=== PATIENT | female | born 1940 | race Caucasian/White ===

== ENCOUNTER 2020-11-27 14:18 | Outpatient (CLI) | payer MEDICARE, MEDICAID ==
[2020-11-27 17:13] LABS: BASOPHILS # (AUTO) 0.1 10^3/uL (0.0-0.1); BASOPHILS % (AUTO) 1.1 %; EOSINOPHILS # (AUTO) 0.2 10^3/uL (0.0-0.7); EOSINOPHILS % (AUTO) 2.4 %; HCT - HEMATOCRIT 33.3 % (37.0-47.0); HGB - HEMOGLOBIN 10.5 g/dL (12.0-16.0); LYMPHOCYTES # (AUTO) 1.9 10^3/uL (1.5-3.5); MEAN CORPUSCULAR HEMOGLOBIN 30.3 pg (27.0-31.0); MEAN CORPUSCULAR HGB CONC 31.5 g/dL (32.0-36.0); MEAN CORPUSCULAR VOLUME 96.2 fL (81.0-99.0); MEAN PLATELET VOLUME 10.1 fL (7.9-10.8); MONOCYTES # (AUTO) 0.4 10^3/uL (0.0-1.0); MONOCYTES % (AUTO) 5.2 %; NEUTROPHILS # (AUTO) 5.8 10^3/uL (1.5-6.6); NEUTROPHILS % (AUTO) 68.9 %; PLT - PLATELET COUNT 276 10^3/uL (130-450); RED BLOOD COUNT 3.46 10^6/uL (4.20-5.40); RED CELL DISTRIBUTION WIDTH 13.4 % (12.0-15.0); WHITE BLOOD COUNT 8.4 x10^3/uL (4.8-10.8)
[2020-11-27 17:20] LABS: ALBUMIN 3.9 g/dL (3.2-5.5); ALBUMIN/GLOBULIN RATIO 1.1 (1.0-2.2); BILIRUBIN,TOTAL 0.4 mg/dL (0.2-1.0); CALCIUM 9.2 mg/dL (8.5-10.3); CREATININE 0.8 mg/dL (0.4-1.0); POTASSIUM 3.7 mmol/L (3.5-5.0); TOTAL PROTEIN 7.5 g/dL (6.7-8.2)
[2020-11-27 17:37] LABS: THYROID STIMULATING HORMONE 1.27 uIU/mL (0.34-5.60)
[2020-11-27 20:57] LABS: ESTIMATED AVERAGE GLUCOSE 180 mg/dL (70-100); HEMOGLOBIN A1c% 7.9 % (4.27-6.07)
== END 2020-11-27 23:59 | disposition home or self-care (01) ==
LOC: LAB.N 14:18
PROVIDERS: ATTEND Family Medicine
DX: E11.620 Type 2 diabetes mellitus with diabetic dermatitis (principal); L03.90 Cellulitis, unspecified
CPT/HCPCS: 36415; 80053; 81599; 83036; 84443; 85025; 87070; 87077; 87181; 87205

== ENCOUNTER 2021-01-13 06:22 | Day surgery (SDC) | payer MEDICARE ==
[~2021-01-13 06:22] MED LIST: CYCLOPENTOLATE 1% OPHTH DROPS 2 ML ONE; KETOROLAC 0.45% OPHTH DROPS ONE; PHENYLEPHRINE 2.5% OPHTH 2 ML DROPS ONE; PROPARACAINE 0.5% OPHTH DROPS 15 ML ONE
[2021-01-13] MEDS ORDERED: LACTATED RINGERS 1,000 ML IV ONE (07:00)
[2021-01-13] MEDS ORDERED: EPINEPHrine 1 MG/ML AMP ONE (07:08)
[2021-01-13] MEDS ORDERED: MIDAZOLAM 2 MG/2 ML VIAL ONE (07:08)
[2021-01-13] MEDS ORDERED: TRIAMCIN/MOXIFLOX OPHTHALMIC 0.6 ML VIAL IO ONE ×3 (07:08→07:48)
[2021-01-13] MEDS ORDERED: fentaNYL 100 MCG/2 ML VIAL ONE (07:08)
[2021-01-13] MEDS ORDERED: BRIMONIDINE 0.2% OPHTH DROPS 5 ML ONE ×2 (07:09→07:53)
[2021-01-13] MEDS ORDERED: TIMOLOL 0.5% OPHTH DROPS ONE ×2 (07:09→07:55)
[2021-01-13] MEDS ORDERED: HYDROmorphone 0.5 MG/0.5 ML SYRINGE IVP PRN (07:20)
[2021-01-13] MEDS ORDERED: ePHEDrine 50 MG/ML VIAL IVP PRN (07:20)
[2021-01-13] MEDS ORDERED: ONDANSETRON 4 MG/2 ML VIAL IVP PRN (07:20)
[2021-01-13] MEDS ORDERED: fentaNYL 100 MCG/2 ML VIAL IVP PRN (07:20)
[2021-01-13] MEDS ORDERED: MORPHINE 2 MG/ML CARPUJECT IVP PRN (07:20)
[2021-01-13] MEDS ORDERED: ATROPINE ABBOJECT 1 MG/10 ML SYRINGE IVP PRN (07:20)
[2021-01-13] MEDS ORDERED: NALOXONE 0.4 MG/ML VIAL IVP PRN (07:20)
[2021-01-13] MEDS ORDERED: METOCLOPRAMIDE 10 MG/2 ML VIAL IVP PRN (07:20)
--- NOTE | 2021-01-13 07:20 | ANESTHESIA ---
Pre-Anesthesia VS, & Labs - Diagnosis left eye cataract - Procedure Left CATIOL Vital Signs: Temp Pulse Resp BP Pulse Ox 37.0 C 45 L 14 162/52 H 99 01/13/21 06:44 01/13/21 06:44 01/13/21 06:44 01/13/21 06:44 01/13/21 06:44 Height: 5 ft 10 in Weight (kg): 103 kg Body Mass Index: 32.5 BMI Classification: Obese - NPO >8 hours - Is Patient ?: No - Lab Results Current Lab Results: Laboratory Tests 01/13/21 06:54: POC Whole Bld Glucose 224 H Lab results reviewed: Yes Home Medications and Allergies Home Medications: Ambulatory Orders Apixaban [Eliquis] 5 mg ORAL BID 01/13/21 Docusate Sodium [Dulcolax Stool Softener] 1 tab ORAL DAILY PRN 01/13/21 Furosemide [Lasix] 40 mg ORAL DAILY 01/13/21 Insulin Lispro Protamin/Lispro [Humalog Mix 75-25 Kwikpen] 22 - 25 units SQ BID 01/13/21 Lisinopril [Zestril] 40 mg ORAL DAILY 01/13/21 Lovastatin 40 mg ORAL DAILY 01/13/21 Apixaban [Eliquis] 5 mg ORAL BID 01/13/21 Docusate Sodium [Dulcolax Stool Softener] 1 tab ORAL DAILY PRN 01/13/21 Furosemide [Lasix] 40 mg ORAL DAILY 01/13/21 Insulin Lispro Protamin/Lispro [Humalog Mix 75-25 Kwikpen] 22 - 25 units SQ BID 01/13/21 Lisinopril [Zestril] 40 mg ORAL DAILY 01/13/21 Lovastatin 40 mg ORAL DAILY 01/13/21 Allergies/Adverse Reactions: Allergies Allergy/AdvReac Type Severity Reaction Status Date / Time No Known Drug Allergies Allergy Verified 01/13/21 07:11 Anes History & Medical History - Anesthetic History Anesthesia Complications: reports: No previous complications Family history of Anesthesia Complications: Denies Family history of Malignant Hyperthermia: Denies - Medical History Cardiovascular: reports: High cholesterol, Murmur, Arrhythmia Pulmonary: reports: None Gastrointestinal: reports: None Urinary: reports: Incontinence Musculoskeletal: reports: Other Endocrine/Autoimmune: reports: Type 2 diabetes Skin: reports: None Other Past Medical History: uses wheelchair, "can't move hips" - Surgical History General: reports: Appendectomy Gynecologic: reports: Other Orthopedic: reports: Other Exam General: Alert, Oriented x3, Cooperative, No acute distress Dental: Dentures full Upper, Dentures full Lower Mouth Openin Fingerbreadth Neck Mobility: Normal Mallampati classification: II Respiratory: Lungs clear, Normal breath sounds, No respiratory distress, No accessory muscle use Cardiovascular: Regular rate, Normal S1, Normal S2, No murmurs Plan Anesthesia Type: MAC Consent for Procedure(s) Verified and Reviewed: Yes Code Status: Attempt Resuscitation ASA classification: 3-Severe systemic disease Is this case an emergency?: No
[2021-01-13] MEDS ORDERED: METHYLERGONOVINE 0.2 MG/ML VIAL ONE (07:22)
[2021-01-13] MEDS ORDERED: PROPARACAINE 0.5% OPHTH DROPS 15 ML EACHEYE ONE (07:44)
[2021-01-13] MEDS ORDERED: BSS/LIDOCAINE/EPINEPHRINE 1 ML SYRINGE IO ONE (07:44)
[2021-01-13] MEDS ORDERED: TIMOLOL 0.5% OPHTH DROPS OPTH ONE (07:44)
[2021-01-13] MEDS ORDERED: EPINEPHrine 1 MG/ML AMP IR ONE (07:44)
[2021-01-13] MEDS ORDERED: BRIMONIDINE 0.2% OPHTH DROPS 5 ML OPTH ONE (07:44)
[2021-01-13] MEDS ORDERED: LIDOCAINE MPF 2%-EPI 1:200000 20 ML VIAL ONE (07:55)
[2021-01-13] MEDS ORDERED: LACTATED RINGERS 950 ML IV ONE (08:00)
[2021-01-13] MEDS ORDERED: LACTATED RINGERS 1,000 ML IV SCH (08:00)
--- NOTE | 2021-01-13 08:08 | OPERATIVE REPORT ---
Operative Report - Other Other Information/Narrative: Date of Surgery: 01/13/21 Preop Dx: Visually significant cataract left eye. This was the first cataract surgery. Postop Dx: Same Procedure: Phacoemulsification with posterior chamber intraocular lens implant left eye Surgeon: Dr. Nikhil Valente Anesthesia: Monitored anesthesia care Complications: None Operative Indications: This is a 80-year-old F with progressive vision loss in the left eye due to 2+ nuclear sclerotic, 2+ cortical, and 2+ posterior subcapsular cataract. Best corrected visual acuity was 20/100 vision in the left eye. Indications for surgery were: - Overall decrease in vision - Difficulty seeing words on a computer screen - Difficulty reading - Difficulty seeing words, closed captions, or game scores on TV - Difficulty seeing street signs - Difficulty with glare or bright lights in any situation - Difficulty tracking a golf ball The patient was consented at length concerning the risks and benefits of cataract surgery after which the patient expressed a desire to proceed with surgery. Operative Procedure: The patient was taken into OR#3 and placed under monitored anesthesia care. A surgical time-out was conducted confirming correct patient, correct procedure, and correct surgical site. The patient was given topical anesthesia and then prepped and draped in the usual sterile fashion. The eye was entered at the 6 and 3 oclock positions. Intracameral Shugarcaine was injected into the anterior chamber followed by a dispersive viscoelastic. A continuous-tear curvilinear capsulorhexis was performed. The nucleus was hydrodissected and phacoemulsified. The cortex was evacuated using automated infusion and aspiration. A cohesive viscoelastic was injected into the capsular bag and a 20.0 diopter intraocular lens was inserted into the bag. Infusion and aspiration were used to evacuate the viscoelastic materials from the eye. The wounds were hydrated and the eye inflated to physiologic pressure using balanced salt solution. Approximately 0.25ml of a mixture of triamcinolone and moxifloxacin was injected trans-sclerally into the vitreous in the inferotemporal quadrant using a 30 gauge cannula. An additional 0.55ml of a mixture of triamcinolone, moxifloxacin, and vancomycin was injected subconjunctivally in the superior quadrant for infection and inflammation prophylaxis. Wound integrity was checked with Weck-Juliana sponges. The patient was taken from the operating room in good condition and given post-op instructions.
--- NOTE | 2021-01-13 08:18 | ANESTHESIA POST OP EVALUATION ---
Anesthesia Post Eval - Post Anesthesia Eval Vitals: Last Vital Signs Temp 36.4 C L 01/13/21 08:12 Pulse 45 L 01/13/21 08:12 Resp 18 01/13/21 08:12 BP 148/44 H 01/13/21 08:12 Pulse Ox 100 01/13/21 08:12 CV Function Including HR & BP: Stable Pain Control: Satisfactory Nausea & Vomiting: Negative Mental Status: Baseline Respiratory Status: Airway Patent Hydration Status: Satisfactory Anesthesia Complications: None
[2021-01-13 08:49] VITALS: BP 142/44
--- NOTE | 2021-01-13 10:17 | OPERATIVE REPORT ---
Operative Report - Other Other Information/Narrative: Op Report Ammendment: Date of Surgery: 01/13/21 ..... An additional 0.55ml of a mixture of triamcinolone and moxifloxacin (vancomycin was NOT used due to lack of availability from the pharmacy) was injected subconjunctivally in the superior quadrant for infection and inflammation prophylaxis.
== END 2021-01-13 06:23 | disposition home or self-care (01) ==
LOC: SDS 06:22
PROVIDERS: ATTEND Ophthalmology
DX: E11.36 Type 2 diabetes mellitus with diabetic cataract (principal); H25.812 Combined forms of age-related cataract, left eye; G47.33 Obstructive sleep apnea (adult) (pediatric); Z79.4 Long term (current) use of insulin; E66.9 Obesity, unspecified; Z68.32 Body mass index [BMI] 32.0-32.9, adult
CPT/HCPCS: 66984; A9270; J3490; J7120

== ENCOUNTER 2021-04-21 07:47 | Outpatient (CLI) | payer MEDICARE, MEDICAID | END 2021-04-21 07:48 | disposition EMS.NT | LOC: EMS 07:47 | DX: Z03.89 Encounter for observation for other suspected diseases and conditions ruled out (principal) ==

== ENCOUNTER 2021-04-21 08:06 | Day surgery (SDC) | payer MEDICARE, MEDICAID ==
[2021-04-21] MEDS ORDERED: MIDAZOLAM 2 MG/2 ML VIAL ONE (08:08)
[2021-04-21] MEDS ORDERED: LACTATED RINGERS 1,000 ML IV ONE (08:24)
--- NOTE | 2021-04-21 08:31 | ANESTHESIA ---
Pre-Anesthesia VS, & Labs - Diagnosis senile combined cataract - Procedure right cataract extraction with intraocular lens Vital Signs: Temp Pulse Resp BP Pulse Ox 36.4 C L 60 16 186/46 H 100 04/21/21 08:14 04/21/21 08:14 04/21/21 08:14 04/21/21 08:14 04/21/21 08:14 Height: 5 ft 10 in Weight (kg): 104 kg Body Mass Index: 32.8 BMI Classification: Obese - NPO >8 hours - Is Patient ?: No Home Medications and Allergies Apixaban [Eliquis] 5 mg ORAL BID 01/13/21 Docusate Sodium [Dulcolax Stool Softener] 1 tab ORAL DAILY PRN 01/13/21 Furosemide [Lasix] 40 mg ORAL DAILY 01/13/21 Insulin Lispro Protamin/Lispro [Humalog Mix 75-25 Kwikpen] 22 - 25 units SQ BID 01/13/21 Lisinopril [Zestril] 40 mg ORAL DAILY 01/13/21 Lovastatin 40 mg ORAL DAILY 01/13/21 Allergies/Adverse Reactions: Allergies Allergy/AdvReac Type Severity Reaction Status Date / Time No Known Drug Allergies Allergy Verified 04/21/21 08:34 Anes History & Medical History - Anesthetic History Anesthesia Complications: reports: No previous complications - Medical History Cardiovascular: reports: High cholesterol, Murmur, Arrhythmia Pulmonary: reports: None Gastrointestinal: reports: None Urinary: reports: Incontinence Musculoskeletal: reports: Other Endocrine/Autoimmune: reports: Type 2 diabetes Skin: reports: None - Surgical History General: reports: Appendectomy Gynecologic: reports: Other Orthopedic: reports: Other Exam General: Alert, Oriented x3 Dental: Dentures full Upper, Dentures full Lower Mouth Opening: Can't Open Mouth Mallampati classification: II Thyromental Distance: greater than 6 cm Respiratory: Lungs clear Cardiovascular: Regular rate Other Exam Comments:: slipped and fell this morning, soreness on right side. no LOC. Plan Anesthesia Type: Total IV Consent for Procedure(s) Verified and Reviewed: Yes Code Status: Attempt Resuscitation ASA classification: 3-Severe systemic disease Is this case an emergency?: No
[2021-04-21] MEDS ORDERED: EPINEPHrine 1 MG/ML AMP IR ONE (08:59)
[2021-04-21] MEDS ORDERED: BRIMONIDINE 0.2% OPHTH DROPS 5 ML OPTH ONE (08:59)
[2021-04-21] MEDS ORDERED: BSS/LIDOCAINE/EPINEPHRINE 1 ML SYRINGE IO ONE (08:59)
[2021-04-21] MEDS ORDERED: TIMOLOL 0.5% OPHTH DROPS OPTH ONE (08:59)
[2021-04-21] MEDS ORDERED: VANCOMYCIN OPHTHALMI 8MG/0.8ML 8 MG/0.8 ML SYRINGE IO ONE (09:00)
[2021-04-21] MEDS ORDERED: TRIAMCIN/MOXIFLOX OPHTHALMIC 0.6 ML VIAL IO ONE ×2 (09:00→11:37)
[2021-04-21] MEDS ORDERED: PROPARACAINE 0.5% OPHTH DROPS 15 ML EACHEYE ONE (09:00)
[2021-04-21 09:35] VITALS: BP 165/63
--- NOTE | 2021-04-21 09:53 | ANESTHESIA POST OP EVALUATION ---
Anesthesia Post Eval - Post Anesthesia Eval Vitals: Last Vital Signs Temp 36.3 C L 04/21/21 09:31 Pulse 50 L 04/21/21 09:31 Resp 18 04/21/21 09:31 BP 165/63 H 04/21/21 09:31 Pulse Ox 100 04/21/21 09:31 CV Function Including HR & BP: Stable Pain Control: Satisfactory Nausea & Vomiting: Negative Mental Status: Baseline Respiratory Status: Airway Patent Hydration Status: Satisfactory Anesthesia Complications: None
[2021-04-21] MEDS ORDERED: EPINEPHrine 1 MG/ML AMP ONE (11:37)
[2021-04-21] MEDS ORDERED: BSS/LIDOCAINE/EPINEPHRINE 1 ML VIAL ONE (11:38)
[2021-04-21] MEDS ORDERED: BRIMONIDINE 0.2% OPHTH DROPS 5 ML ONE (11:38)
[2021-04-21] MEDS ORDERED: TIMOLOL 0.5% OPHTH DROPS ONE (11:38)
--- NOTE | 2021-04-21 11:40 | OPERATIVE REPORT ---
Operative Report - Other Other Information/Narrative: Date of Surgery: 04/21/21 Preop Dx: Visually significant cataract right eye. Cataract surgery was performed in the left eye on . Postop Dx: Same Procedure: Phacoemulsification with posterior chamber intraocular lens implant right eye Surgeon: Dr. Nikhil Valente Anesthesia: Monitored anesthesia care Complications: None Operative Indications: This is a 81-year-old F with progressive vision loss in the right eye due to 2+ nuclear sclerotic, 1+ cortical, and 1-2+ posterior subcapsular cataract. Best corrected visual acuity was 20/100 vision in the right eye. Indications for surgery were: - Overall decrease in vision - Difficulty seeing words on a computer screen - Difficulty reading - Difficulty seeing words, closed captions, or game scores on TV - Difficulty seeing street signs - Difficulty with glare or bright lights in any situation - Difficulty tracking a golf ball The patient was consented at length concerning the risks and benefits of cataract surgery after which the patient expressed a desire to proceed with surgery. Operative Procedure: The patient was taken into OR#3 and placed under monitored anesthesia care. A surgical time-out was conducted confirming correct patient, correct procedure, and correct surgical site. The patient was given topical anesthesia and then prepped and draped in the usual sterile fashion. The eye was entered at the 6 and 3 oclock positions. Intracameral Shugarcaine was injected into the anterior chamber followed by a dispersive viscoelastic. A continuous-tear curvilinear capsulorhexis was performed. The nucleus was hydrodissected and phacoemulsified. The cortex was evacuated using automated infusion and aspiration. A cohesive viscoelastic was injected into the capsular bag and a 19.5 diopter intraocular lens was inserted into the bag. Infusion and aspiration were used to evacuate the viscoelastic materials from the eye. The wounds were hydrated and the eye inflated to physiologic pressure using balanced salt solution. Approximately 0.25ml of a mixture of triamcinolone and moxifloxacin was injected trans-sclerally into the vitreous in the inferotemporal quadrant using a 30 gauge cannula. An additional 0.55ml of a mixture of triamcinolone, moxifloxacin, and vancomycin was injected s ubconjunctivally in the superior quadrant for infection and inflammation prophylaxis. Wound integrity was checked with Weck-Juliana sponges. The patient was taken from the operating room in good condition and given post-op instructions.
== END 2021-04-21 08:07 | disposition home or self-care (01) ==
LOC: SDS 08:06
PROVIDERS: ATTEND Ophthalmology
DX: E11.36 Type 2 diabetes mellitus with diabetic cataract (principal); H25.811 Combined forms of age-related cataract, right eye; Z79.4 Long term (current) use of insulin; G47.33 Obstructive sleep apnea (adult) (pediatric); F41.9 Anxiety disorder, unspecified; E66.9 Obesity, unspecified; Z68.32 Body mass index [BMI] 32.0-32.9, adult; Z98.42 Cataract extraction status, left eye
CPT/HCPCS: 66984; A9270; J3490; J7120

== ENCOUNTER 2021-05-05 08:31 | Outpatient (CLI) | payer MEDICARE, MEDICAID ==
[2021-05-05 08:59] LABS: CALCIUM 9.2 mg/dL (8.5-10.3); CREATININE 0.9 mg/dL (0.4-1.0); POTASSIUM 3.9 mmol/L (3.5-5.0)
[2021-05-05 13:07] LABS: ESTIMATED AVERAGE GLUCOSE 174 mg/dL (70-100); HEMOGLOBIN A1c% 7.7 % (4.27-6.07)
== END 2021-05-05 08:32 | disposition home or self-care (01) ==
LOC: LAB 08:31
PROVIDERS: ATTEND Registered Nurse
DX: E11.9 Type 2 diabetes mellitus without complications (principal)
CPT/HCPCS: 36415; 80048; 82043; 82570; 83036

== ENCOUNTER 2021-05-06 09:38 | Outpatient (CLI) | payer MEDICARE, MEDICAID ==
[2021-05-06 10:05] LABS: CREATININE,URINE 100.9 mg/dL; MICROALBUM/CREATININE RATIO,UR 64.4 ug/mg (<30.0); MICROALBUMIN,URINE 6.5 mg/dL (0-300.0)
== END 2021-05-06 09:39 | disposition home or self-care (01) ==
LOC: LAB 09:38
PROVIDERS: ATTEND Registered Nurse
DX: E11.9 Type 2 diabetes mellitus without complications (principal)
CPT/HCPCS: 82043; 82570

== ENCOUNTER 2021-08-18 09:37 | Outpatient (CLI) | payer MEDICARE, MEDICAID ==
[2021-08-18 10:17] LABS: CHOL/HDL RATIO 2.6 (<4.4); CHOLESTEROL 120 mg/dL; HDL CHOLESTEROL 46 mg/dL; LDL CHOLESTEROL,CALCULATED 64 mg/dL; LDL/HDL RATIO 1.4 (<4.4); TRIGLYCERIDES 48 mg/dL; VLDL CHOLESTEROL 10 mg/dL
[2021-08-18 11:07] LABS: ESTIMATED AVERAGE GLUCOSE 180 mg/dL (70-100); HEMOGLOBIN A1c% 7.9 % (4.27-6.07)
== END 2021-08-18 09:38 | disposition home or self-care (01) ==
LOC: LAB 09:37
PROVIDERS: ATTEND Nurse Practitioner
DX: E11.65 Type 2 diabetes mellitus with hyperglycemia (principal)
CPT/HCPCS: 36415; 80061; 83036; 83721

== ENCOUNTER 2021-10-06 08:00 | Outpatient (CLI) | payer MEDICARE, MEDICAID ==
[2021-10-06 21:32] LABS: BACTERIAL VAGINOSIS DNA NEGATIVE (NEGATIVE); CANDIDA GLABRATA DNA NEGATIVE (NEGATIVE); CANDIDA GROUP DNA NEGATIVE (NEGATIVE); CANDIDA KRUSEI DNA NEGATIVE (NEGATIVE); TRICHOMONAS VAGINALIS DNA NEGATIVE (NEGATIVE)
== END 2021-10-06 23:59 | disposition home or self-care (01) ==
LOC: LAB 08:00
PROVIDERS: ATTEND Obstetrics & Gynecology
DX: N76.0 Acute vaginitis (principal)
CPT/HCPCS: 81514

== ENCOUNTER 2021-12-15 07:28 | Emergency (ER) | payer MEDICARE, MEDICAID ==
[2021-12-15] MEDS ORDERED: SODIUM CHLORIDE 0.9% 500 ML IV STA (07:39)
[2021-12-15 07:50] LABS: BASOPHILS % (AUTO) 0.3 %; EOSINOPHILS % (AUTO) 0.4 %; HGB - HEMOGLOBIN 11.6 g/dL (12.0-16.0); LYMPHOCYTES # (AUTO) 0.4 10^3/uL (1.5-3.5); LYMPHOCYTES % (AUTO) 4.1 %; MEAN CORPUSCULAR HEMOGLOBIN 30.9 pg (27.0-31.0); MEAN CORPUSCULAR HGB CONC 32.2 g/dL (32.0-36.0); MEAN CORPUSCULAR VOLUME 95.7 fL (81.0-99.0); MEAN PLATELET VOLUME 9.1 fL (7.9-10.8); MONOCYTES # (AUTO) 0.2 10^3/uL (0.0-1.0); MONOCYTES % (AUTO) 2.2 %; NEUTROPHILS # (AUTO) 8.5 10^3/uL (1.5-6.6); NEUTROPHILS % (AUTO) 92.8 %; PLT - PLATELET COUNT 188 10^3/uL (130-450); RED BLOOD COUNT 3.76 10^6/uL (4.20-5.40); RED CELL DISTRIBUTION WIDTH 13.2 % (12.0-15.0); WHITE BLOOD COUNT 9.1 x10^3/uL (4.8-10.8)
[2021-12-15 07:55] LABS: PT - PROTHROMBIN TIME 11.8 secs (9.9-12.6)
--- NOTE | 2021-12-15 08:01 | ED Physician Documentation ---
History of Present Illness - Stated complaint Stated Complaint: GEN WEAKNESS - Chief complaint Chief Complaint: Neuro - History obtained from History obtained from: Patient, EMS - Additonal information Additional information: Patient is an 81-year-old female with a history of TIAs, on Eliquis presenting for evaluation of generalized weakness since yesterday afternoon. Patient was able to walk using her walker to her garage to have coffee and sat down on the walker. She had difficulty getting up and it took her quite some time to get back into the home. She then has been sitting in a recliner since last night. She lives with her niece. Due to continued weakness this morning EMS was activated. Loop Tender was concerned for possible facial droop that he noted to her right lip.Patient denies falling or hitting her head. She reports being compliant with her medications. She has had a nonproductive cough. She denies chest pain, difficulty breathing, abdominal pain, vomiting, dysuria.She was noted to have a low-grade fever of 37.9 upon arrival. Review of Systems Constitutional: reports: Fever Nose: denies: Congestion Cardiac: denies: Chest pain / pressure Respiratory: reports: Cough. denies: Dyspnea GI: denies: Abdominal Pain, Vomiting, Diarrhea : denies: Dysuria Musculoskeletal: denies: Neck pain Neurologic: reports: Generalized weakness. 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 - Present Medications Home Medications: Ambulatory Orders Medication Instructions Recorded Confirmed Apixaban [Eliquis] 5 mg ORAL BID 01/13/21 12/15/21 Docusate Sodium [Dulcolax Stool 1 tab ORAL DAILY PRN 01/13/21 12/15/21 Softener] Insulin Lispro Protamin/Lispro 20 units SQ BID 01/13/21 12/15/21 [Humalog Mix 75-25 Kwikpen] Lisinopril [Zestril] 40 mg ORAL DAILY 01/13/21 12/15/21 Lovastatin 40 mg ORAL DAILY 01/13/21 12/15/21 cephALEXin [Keflex] 500 mg PO Q6H #28 cap 12/15/21 - Allergies Allergies/Adverse Reactions: Allergies Allergy/AdvReac Type Severity Reaction Status Date / Time No Known Drug Allergies Allergy Verified 12/15/21 07:38 PD ED PE NORMAL - General General: Alert and oriented X 3, No acute distress, Well developed/nourished - HEENT HEENT: Atraumatic, PERRL, EOMI, Pharynx benign (Tongue is midline). 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, No motor deficit, No sensory deficit, Normal speech, Other (Questionable Droop to corner of right lip, however patient is able to smile symmetrically and puff out her cheeks symmetrically) Results - Vitals Vitals: Vital Signs - 24 hr 12/15/21 12/15/21 12/15/21 07:34 07:49 09:24 Temperature 37.9 C Heart Rate 63 59 L 61 Respiratory 20 21 20 Rate Blood Pressure 192/38 H 192/38 H 197/43 H O2 Saturation 95 93 97 Oxygen O2 Source Room air - EKG (time done) 0813 Rate: Rate (enter#) (56) Rhythm: Sinus bradycardia Intervals: No: Prolonged QT Ischemia: No: ST elevation c/w ischemia - Labs Labs: Laboratory Tests 12/15/21 12/15/21 12/15/21 07:40 07:45 07:45 WBC 9.1 RBC 3.76 L Hgb 11.6 L Hct 36.0 L MCV 95.7 MCH 30.9 MCHC 32.2 RDW 13.2 Plt Count 188 MPV 9.1 Neut # (Auto) 8.5 H Lymph # (Auto) 0.4 L [place] # (Auto) 0.2 Eos # (Auto) 0.0 Baso # (Auto) 0.0 Absolute Nucleated RBC 0.00 Nucleated RBC % 0.0 PT 11.8 INR 1.0 Sodium Potassium Chloride Carbon Dioxide Anion Gap BUN Creatinine Estimated GFR (MDRD) Glucose Lactic Acid Calcium Magnesium Total Bilirubin AST ALT Alkaline Phosphatase Total Protein Albumin Globulin Albumin/Globulin Ratio Lipase Urine Color Urine Clarity Urine pH Ur Specific [place] Urine Protein Urine Glucose (UA) Urine Ketones Urine Occult Blood Urine Nitrite Urine Bilirubin Urine Urobilinogen Ur Leukocyte Esterase Urine RBC Urine WBC Urine WBC Clumps Ur Squamous Epith Cells Urine Bacteria Ur Microscopic Review Urine Culture Comments Nasal Adenovirus (PCR) NOT DETECTED Nasal B. parapertussis DNA (PCR) NOT DETECTED Nasal Coronavir 229E PCR NOT DETECTED Nasal Coronavir HKU1 PCR NOT DETECTED Nasal Coronavir NL63 PCR NOT DETECTED Nasal Coronavir OC43 PCR NOT DETECTED Nasal Enterovir/Rhinovir PCR NOT DETECTED Nasal Influenza B PCR NOT DETECTED Nasal Influenza A PCR NOT DETECTED Nasal Parainfluen 1 PCR NOT DETECTED Nasal Parainfluen 2 PCR NOT DETECTED Nasal Parainfluen 3 PCR NOT DETECTED Nasal Parainfluen 4 PCR NOT DETECTED Nasal RSV (PCR) NOT DETECTED Nasal B.pertussis DNA PCR NOT DETECTED Nasal C.pneumoniae (PCR) NOT DETECTED Harish Human Metapneumo PCR NOT DETECTED Nasal M.pneumoniae (PCR) NOT DETECTED Nasal SARS-CoV-2 (PCR) NOT DETECTED 12/15/21 12/15/21 12/15/21 07:45 07:45 08:28 WBC RBC Hgb Hct MCV MCH MCHC RDW Plt Count MPV Neut # (Auto) Lymph # (Auto) [place] # (Auto) Eos # (Auto) Baso # (Auto) Absolute Nucleated RBC Nucleated RBC % PT INR Sodium 141 Potassium 3.7 Chloride 106 Carbon Dioxide 24 Anion Gap 11.0 BUN 19 Creatinine 0.8 Estimated GFR (MDRD) 69 L Glucose 287 H Lactic Acid 1.8 Calcium 9.0 Magnesium 1.6 L Total Bilirubin 0.8 AST 13 ALT 11 Alkaline Phosphatase 60 Total Protein 6.8 Albumin 3.5 Globulin 3.3 Albumin/Globulin Ratio 1.1 Lipase 21 L Urine Color YELLOW Urine Clarity SL. CLOUDY Urine pH 6.0 Ur Specific [place] 1.025 Urine Protein 30 H Urine Glucose (UA) 250 H Urine Ketones NEGATIVE Urine Occult Blood SMALL H Urine Nitrite POSITIVE H Urine Bilirubin NEGATIVE Urine Urobilinogen 0.2 (NORMAL) Ur Leukocyte Esterase SMALL H Urine RBC 0-5 Urine WBC >25 H Urine WBC Clumps PRESENT Ur Squamous Epith Cells FEW Squamous Urine Bacteria Many H Ur Microscopic Review INDICATED Urine Culture Comments INDICATED Nasal Adenovirus (PCR) Nasal B. parapertussis DNA (PCR) Nasal Coronavir 229E PCR Nasal Coronavir HKU1 PCR Nasal Coronavir NL63 PCR Nasal Coronavir OC43 PCR Nasal Enterovir/Rhinovir PCR Nasal Influenza B PCR Nasal Influenza A PCR Nasal Parainfluen 1 PCR Nasal Parainfluen 2 PCR Nasal Parainfluen 3 PCR Nasal Parainfluen 4 PCR Nasal RSV (PCR) Nasal B.pertussis DNA PCR Nasal C.pneumoniae (PCR) Harish Human Metapneumo PCR Nasal M.pneumoniae (PCR) Nasal SARS-CoV-2 (PCR) PD MEDICAL DECISION MAKING - ED course Complexity details: reviewed results, re-evaluated patient, d/w patient ED course: Patient presenting for evaluation of generalized weakness since yesterday. Loop Tender had concerns for possible facial droop with noticing a lag at her right lip but upon my evaluation it does not appear to be a true droop as she is able to smile symmetrically and puff out cheeks symmetrically and has no other suggestions of a focal deficit on exam.She does report having increased weakness and decreased strength in her legs since the prior day with no focal deficits again noted on exam. She was noted to have a low-grade fever. Work-up included head CT as blood pressures were elevated which did not show signs of a bleed. Labs reviewed and urine suggests an infection.Her respiratory panel is negative. Patient did receive IV fluids as well as antibiotics and was doing much better and able to ambulate. She has a niece here who she stays with and is able to assist her and they are comfortable with plan for discharge.They are advised on concerning symptoms to return for. Patient was able to ambulate with her walker without assistance and get her self up from the hospital bed. Her niece Jovita who she lives with is at the bedside and is comfortable with plan for discharge and they do have Some additional family coming that may be able to help in caring for patient. Departure - Departure Disposition: 01 Home, Self Care Clinical Impression: Generalized weakness, UTI (urinary tract infection) Condition: Stable Instructions: ED UTI Cystitis Female Prescriptions: cephALEXin [Keflex] 500 mg PO Q6H #28 cap Comments: You were evaluated for generalized weakness and found to have a low-grade fever. Your labs were overall stable. Your urine is concerning for an infection. A brain CT does not show any bleeding and your chest x-ray is clear. Your respiratory panel is also negative for COVID, influenza, RSV and other common cold viruses that we test for. I have sent prescription for an antibiotic to the [facility] pharmacy.Please call your primary care doctor to try and arrange for close follow-up as you may need additional assistance at home with home health. You may also need outpatient physical therapy to help build your strength. Discharge Date/Time: 12/15/21 10:58
[2021-12-15 08:04] LABS: ALBUMIN 3.5 g/dL (3.2-5.5); ALBUMIN/GLOBULIN RATIO 1.1 (1.0-2.2); BILIRUBIN,TOTAL 0.8 mg/dL (0.2-1.0); CREATININE 0.8 mg/dL (0.4-1.0); MAGNESIUM 1.6 mg/dL (1.7-2.8); POTASSIUM 3.7 mmol/L (3.5-5.0); TOTAL PROTEIN 6.8 g/dL (6.7-8.2)
--- NOTE | 2021-12-15 08:19 | CT Report ---
PROCEDURE: HEAD WO INDICATIONS: Weakness, hypertension TECHNIQUE: Noncontrast 4.5 mm thick angled axial sections acquired from the foramen magnum to the vertex. For r adiation dose reduction, the following was used: automated exposure control, adjustment of mA and/or kV according to patient size. COMPARISON: None. FINDINGS: No acute intracranial hemorrhage, abnormal extra axial fluid collection, mass effect, or midline shif t. Moderate global cerebral volume loss and chronic micro-vascular ischemic changes. 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 Ventricular system and basilar cisterns are patent . No gross orbital abnormality. Paranasal sinuses and mastoid air cells predominantly clear. No signi ficant osseous abnormality. IMPRESSION: No acute intracranial finding. Reviewed by: Elia Shelton MD on 12/15/2021 8:17 AM [facility] Approved by: Elia Shelton MD on 12/15/2021 8:17 AM [facility] Station ID: [id number]
[2021-12-15] MEDS ORDERED: lisinopriL 20 MG TABLET PO STA (08:23)
[2021-12-15] MEDS ORDERED: MAGNESIUM OXIDE 400 MG TABLET PO STA (08:25)
--- NOTE | 2021-12-15 08:35 | XRAY Report ---
PROCEDURE: Chest 1 View X-Ray INDICATIONS: fever/cough TECHNIQUE: One view of the chest was acquired. COMPARISON: None. FINDINGS: Surgical changes and devices: None. Lungs and pleura: No pleural effusions or pneumothorax. Mild increased pulmonary vascularity. Mediastinum: Mediastinal contours appear normal. Heart size is enlarged. Bones and chest wall: No suspicious bony lesions. Overlying soft tissues appear unremarkable. IMPRESSION: Mild increased vascularity suggestive of edema. Reviewed by: Toya Edwards MD on 12/15/2021 8:34 AM [facility] Approved by: Toya Edwards MD on 12/15/2021 8:34 AM [facility] Station ID: [id number]
[2021-12-15 08:50] LABS: B. PARAPERTUSSIS- RESP PCR PAN NOT DETECTED; B. PERTUSSIS- RESP PCR PANEL NOT DETECTED; C. PNEUMONIAE- RESP PCR PANEL NOT DETECTED; CORONAVIRUS 229E-RESP PCR NOT DETECTED; CORONAVIRUS HKU1-RESP PCR NOT DETECTED; CORONAVIRUS NL63-RESP PCR NOT DETECTED; CORONAVIRUS OC43-RESP PCR NOT DETECTED; HUMAN METAPNEUMOVIRUS NOT DETECTED; INFLUENZA A- RESP PCR PANEL NOT DETECTED; INFLUENZA B - RESP PCR PANEL NOT DETECTED; M. PNEUMONIAE- RESP PCR PANEL NOT DETECTED; PARAINFLUENZA VIRUS 1 NOT DETECTED; PARAINFLUENZA VIRUS 2 NOT DETECTED; PARAINFLUENZA VIRUS 3 NOT DETECTED; PARAINFLUENZA VIRUS 4 NOT DETECTED; RHINOVIRUS/ENTEROVIRUS NOT DETECTED; RSV- RESP PCR PANEL NOT DETECTED; SARS-CoV-2 -RESP PCR PANEL NOT DETECTED
[2021-12-15 08:51] LABS: BILIRUBIN,URINE NEGATIVE (NEGATIVE); GLUCOSE, URINE (UA) 250 mg/dL (NEGATIVE); KETONES,URINE (UA) NEGATIVE (NEGATIVE); LEUKOCYTE ESTERASE, URINE SMALL (NEGATIVE); NITRITE,URINE POSITIVE (NEGATIVE); OCCULT BLOOD,URINE SMALL (NEGATIVE); PROTEIN,URINE 30 mg/dL (NEGATIVE); UROBILINOGEN,URINE 0.2 (NORMAL) E.U./dL (NORMAL)
[2021-12-15 09:00] LABS: CLARITY,URINE SL. CLOUDY (CLEAR)
[2021-12-15 09:08] LABS: BACTERIA,URINE Many /HPF (None Seen); RBC,URINE 0-5 /HPF (0-5); SQUAMOUS EPITHELIAL CELL,UR FEW Squamous (<= Few); WBC CLUMPS,URINE PRESENT; WBC,URINE >25 /HPF (0-5)
[2021-12-15] MEDS ORDERED: cefTRIAXone 1 GM in SODIUM CHLORIDE 0.9% MINIBAG 100 ML IV STA (09:15)
[2021-12-15] MEDS ORDERED: ACETAMINOPHEN 325 MG TABLET PO STA (09:17)
[2021-12-15 09:25] VITALS: BP 197/43
== END 2021-12-15 10:58 | disposition home or self-care (01) ==
LOC: EDUNIT# → ED 07:28
DX: N39.0 Urinary tract infection, site not specified (principal); R53.1 Weakness; R05.9 Cough, unspecified; R03.0 Elevated blood-pressure reading, without diagnosis of hypertension; R00.1 Bradycardia, unspecified; Z86.73 Personal history of transient ischemic attack (TIA), and cerebral infarction without residual deficits; Z79.01 Long term (current) use of anticoagulants; E11.9 Type 2 diabetes mellitus without complications; Z79.4 Long term (current) use of insulin
CPT/HCPCS: 36415; 51701; 70450; 71045; 80053; 81001; 83605; 83690; 83735; 85025; 85610; 87040; 87086; 87150; 87181; 87633; 93005; 96365; 99283; 99284; A9270; 81003

== ENCOUNTER 2021-12-16 13:02 | Inpatient (IN) | payer MEDICARE, MEDICAID ==
[2021-12-16] MEDS ORDERED: cefTRIAXone 2 GM in SODIUM CHLORIDE 0.9% MINIBAG 100 ML IV STA (13:13)
--- NOTE | 2021-12-16 13:15 | ED Physician Documentation ---
History of Present Illness - Stated complaint Stated Complaint: KNEE/HIP PX - Chief complaint Chief Complaint: Trauma Ext - History obtained from History obtained from: Patient, EMS - Additonal information Additional information: 81-year-old woman was seen here yesterday for UTI. In the interim she has 1 of 2 blood cultures positive for E. coli. We called her back, but she could not make it back. She had a episode of weakness and she kind of crumpled to the ground and has knee and tailbone pain. There was no syncope. Brought in by ambulance for evaluation of knee and tailbone pain after a fall. No other injuries. Review of Systems Ten Systems: 10 systems reviewed and negative Constitutional: reports: Fatigue. 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 - Present Medications Home Medications: Ambulatory Orders Medication Instructions Recorded Confirmed Apixaban [Eliquis] 5 mg ORAL BID 01/13/21 12/16/21 Docusate Sodium [Dulcolax Stool 1 tab ORAL DAILY PRN 01/13/21 12/16/21 Softener] Insulin Lispro Protamin/Lispro 20 units SQ BID 01/13/21 12/16/21 [Humalog Mix 75-25 Kwikpen] Lisinopril [Zestril] 40 mg ORAL DAILY 01/13/21 12/16/21 Lovastatin 40 mg ORAL DAILY 01/13/21 12/16/21 cephALEXin [Keflex] 500 mg PO Q6H #28 cap 12/15/21 12/16/21 - Allergies Allergies/Adverse Reactions: Allergies Allergy/AdvReac Type Severity Reaction Status Date / Time No Known Drug Allergies Allergy Verified 12/15/21 07:38 - Social History Does the pt smoke?: No Smoking Status: Never smoker - POLST Patient has POLST: No PD ED PE NORMAL - Vitals Vital signs reviewed: Yes - General General: Alert and oriented X 3, No acute distress - HEENT HEENT: PERRL, EOMI - Neck Neck: Supple, no meningeal sign, No bony TTP - Cardiac Cardiac: RRR, No murmur - Respiratory Respiratory: No respiratory distress, Clear bilaterally - Abdomen Abdomen: Soft, Non tender - Extremities Extremities: No deformity, Other (Tender to the medial joint lines of both knees without effusions or deformities. Tenderness to the sacrum low down without other pelvic or hip tenderness.) - Neuro Neuro: Alert and oriented X 3, Normal speech - Psych Psych: Normal mood, Normal affect Results - Vitals Vitals: Oxygen O2 Source Room air - Labs Labs: Laboratory Tests 12/16/21 12/16/21 12/16/21 13:16 13:16 13:16 WBC 6.0 RBC 3.57 L Hgb 10.8 L Hct 34.4 L MCV 96.4 MCH 30.3 MCHC 31.4 L RDW 13.2 Plt Count 170 MPV 9.1 Neut # (Auto) 5.0 Lymph # (Auto) 0.6 L [place] # (Auto) 0.4 Eos # (Auto) 0.1 Baso # (Auto) 0.0 Absolute Nucleated RBC 0.00 Nucleated RBC % 0.0 Sodium 135 Potassium 3.5 Chloride 101 Carbon Dioxide 25 Anion Gap 9.0 BUN 14 Creatinine 0.9 Estimated GFR (MDRD) 60 L Glucose 160 H Lactic Acid 2.4 H Calcium 8.6 Total Bilirubin 0.4 AST 19 ALT 12 Alkaline Phosphatase 59 Total Protein 6.7 Albumin 3.3 Globulin 3.4 Albumin/Globulin Ratio 1.0 PD MEDICAL DECISION MAKING - ED course ED course: 81-year-old woman seen yesterday for UTI and noted to have gram-negative bacteremia now returns with generalized weakness and a fall without syncope. Imaging of the affected areas demonstrates no fractures but I did discuss the iliac aneurysms with patient and daughter and they understand that they need eventual vascular surgery follow-up. She was too weak to walk unassisted here, likely related to her gram-negative bacteremia and I spoke with Dr. Wells for admission at 3:30 PM. Departure - Departure Disposition: ED Place in Observation Clinical Impression: Gram negative sepsis, Generalized weakness, Iliac artery aneurysm, bilateral Contusion of right knee Qualifiers: Encounter type: initial encounter Qualified Code(s): S80.01XA - Contusion of right knee, initial encounter Contusion of left knee Qualifiers: Encounter type: initial encounter Qualified Code(s): S80.02XA - Contusion of left knee, initial encounter Pelvic contusion Qualifiers: Encounter type: initial encounter Qualified Code(s): S30.0XXA - Contusion of lower back and pelvis, initial encounter Condition: Serious Record reviewed to determine appropriate education?: Yes
[2021-12-16 13:19] LABS: BASOPHILS % (AUTO) 0.5 %; EOSINOPHILS # (AUTO) 0.1 10^3/uL (0.0-0.7); EOSINOPHILS % (AUTO) 0.8 %; HCT - HEMATOCRIT 34.4 % (37.0-47.0); HGB - HEMOGLOBIN 10.8 g/dL (12.0-16.0); LYMPHOCYTES # (AUTO) 0.6 10^3/uL (1.5-3.5); LYMPHOCYTES % (AUTO) 9.7 %; MEAN CORPUSCULAR HEMOGLOBIN 30.3 pg (27.0-31.0); MEAN CORPUSCULAR HGB CONC 31.4 g/dL (32.0-36.0); MEAN CORPUSCULAR VOLUME 96.4 fL (81.0-99.0); MEAN PLATELET VOLUME 9.1 fL (7.9-10.8); MONOCYTES # (AUTO) 0.4 10^3/uL (0.0-1.0); NEUTROPHILS % (AUTO) 82.7 %; PLT - PLATELET COUNT 170 10^3/uL (130-450); RED BLOOD COUNT 3.57 10^6/uL (4.20-5.40); RED CELL DISTRIBUTION WIDTH 13.2 % (12.0-15.0)
[2021-12-16 13:32] LABS: ALBUMIN 3.3 g/dL (3.2-5.5); BILIRUBIN,TOTAL 0.4 mg/dL (0.2-1.0); CALCIUM 8.6 mg/dL (8.5-10.3); CREATININE 0.9 mg/dL (0.4-1.0); POTASSIUM 3.5 mmol/L (3.5-5.0); TOTAL PROTEIN 6.7 g/dL (6.7-8.2)
[2021-12-16 13:33] LABS: LACTIC ACID, VENOUS 2.4 mmol/L (0.5-2.2)
--- NOTE | 2021-12-16 13:46 | XRAY Report ---
PROCEDURE: Knee 4 View BILAT INDICATIONS: knee injury TECHNIQUE: 4 views of each of the bilateral knee(s) were acquired. COMPARISON: None. FINDINGS: Bones: No acute fractures or dislocations. No suspicious bony lesions. Tricompartmental degenerati ve changes of the bilateral knee with severe lateral compartment joint space narrowing of the right k nee. Marginal osteophytes visualized bilaterally. Soft tissues: No significant joint effusion seen in either knee. No suspicious soft tissue calcific ations. IMPRESSION: Bilateral knee without acute fracture or dislocation. If there is persistent clinical concern for a radiographically occult fracture, recommend immobilizat ion and repeat imaging in 10 to 14 days. Reviewed by: Wes Cortez MD on 12/16/2021 1:44 PM PST Approved by: Wes Cortez MD on 12/16/2021 1:44 PM PST Station ID: [id number]
[2021-12-16] MEDS ORDERED: SODIUM CHLORIDE 0.9% 1,000 ML IV STA (13:50)
--- NOTE | 2021-12-16 14:33 | CT Report ---
PROCEDURE: PELVIS WO INDICATIONS: sacrum inj TECHNIQUE: Noncontrast 3 mm axial sections acquired through the bony pelvis, with coronal and sagittal reformatt ing. For radiation dose reduction, the following was used: automated exposure control, adjustment of mA and/or kV according to patient size. COMPARISON: None. FINDINGS: Image quality: Excellent. Bones: Pelvic ring is intact. No acute pelvic or hip fracture. No hip dislocation. No evidence of ac [place] displaced sacral or coccygeal fractures. Sacral and coccygeal alignment is anatomic. Osteoarthrit ic changes are seen in bilateral sacroiliac joints, hip joints and symphysis pubis. No evidence of av ascular necrosis of femoral head. No suspicious bony lesions. Soft tissues: There is no precervical soft tissue abnormality. No gross muscle or soft tissue abnorm ality is seen in pelvis and bilateral hip. There is no pelvic free fluid or free air. No abnormal bow el wall thickening. Bladder wall thickness is normal. Sigmoid diverticulosis is seen without evidence of acute diverticulitis. Incidentally noted is fusiform infrarenal abdominal aortic ectasia measures up to 2.6 cm in largest AP diameter. There is aneurysm involving right common iliac artery and inter nal iliac artery measures up to 2.6 cm in largest diameter. Moderate atherosclerotic disease througho ut abdominal aorta and bilateral iliac arteries are seen. IMPRESSION: 1. No gross acute pelvic or hip fracture. No hip dislocation. Osteoarthritic changes throughout bony pelvis. No evidence of avascular necrosis of femoral head. No suspicious bony. 2. No pelvic free fluid or free air. No gross pelvic or hip soft tissue abnormalities. Sigmoid divert iculosis without evidence of acute diverticulitis. 3. 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 No signs of rupture. Reviewed by: Mike Muñiz MD on 12/16/2021 2:32 PM PST Approved by: Mike Muñiz MD on 12/16/2021 2:32 PM PST Station ID: [id number]
[2021-12-16] MEDS ORDERED: ONDANSETRON ODT 4 MG TABLET TL PRN (15:38)
[2021-12-16] MEDS ORDERED: SODIUM CHLORIDE FLUSH 0.9% 10 ML SYRINGE IVP PRN (15:38)
[2021-12-16] MEDS ORDERED: ONDANSETRON 4 MG/2 ML VIAL IVP PRN (15:38)
[2021-12-16] MEDS: INSULIN LISPRO 300 UNIT/3 ML PEN SUBQ SCH ×3 (17:12→21:08)
[2021-12-16] MEDS: SODIUM CHLORIDE 0.9% 1,000 ML IV SCH (17:12)
[2021-12-16] MEDS: SODIUM CHLORIDE FLUSH 0.9% 10 ML SYRINGE IVP SCH (17:13)
--- NOTE | 2021-12-16 17:40 | HISTORY & PHYSICAL EXAMINATION ---
Chief Complaint - Chief Complaint Chief Complaint: Fall on ground due to weakness History of Present Illness - Admitted From Admitted From:: Home via EMS - History Obtained From Records Reviewed: [facility] History obtained from: Dr. Bran Exam Limitations: None - History of Present Illness HPI Comment/Other: This patient presented to the emergency room on December 15 complaining of generalized weakness for 24 hours. She ambulates with a walker and had sat down for her coffee the morning before. When she tried to get up to go back into the house, she almost did not make it because of fatigue. She got back in the house and spent the rest of the day and night in a recliner because of the fatigue. So EMS was called December 15 and she was seen for the weakness. She was diagnosed as having a UTI. She was sent home with Keflex. Blood cultures were positive overnight. She is growing E. coli. ER tried to call her for follow-up but they could not get a hold of her. EMS eventually brought her in and they found out that she had an episode of weakness at home and she kind of crumpled to the ground and landed on her knees and then her tailbone. There is no syncope. No chest pain, palpitations, shortness of breath. She just sort of lost her strength to be able to stand. In the emergency room on the she was hypertensive between 165 and 197 systolic. In the emergency room today blood pressure was 182/45. Temperature was 37.6. Heart rate was 59. She is breathing normally at 15-20 and she is 98% on room air. She is a fatigued appearing elderly female and in no respiratory distress. She was alert and oriented. Clear lungs. Her knees were tender where she had fallen on them. Abdomen was soft, normal bowel sounds. White cell count was 6000. Hemoglobin 10.8. Lactic acid was now 2.4 whereas 1.8 yesterday. She had imaging done in the emergency room and it showed iliac aneurysms but no fractures. When they try to get her up to send her home, she was too weak to walk unassisted. Which is new for her. So I been asked to place her in observation for the E. coli bacteremia. We are hoping that an overnight stay with IV fluids and antibiotics will improve her overall strength for her to be discharged. On review of systems she wears glasses, had a cataract removed. So she sees dontae rios. Has had some mild to moderate hearing loss. But no problems with dysphagia, dysarthria. She has had mini strokes, and sometimes is affected her balance and her endurance. She denies coughing and wheezing in spite of the fact that she is a smoker since the age of 14. She is on blood thinners for her history of TIAs and strokes. She does not recall if she was ever told that she had a heart attack, or atrial fibrillation. She does not have edema, palpitations, and overall cardiovascular endurance is reduced because "I am out of shape and I am old". She said the last time she did really well was a few years ago when she did rehab after her stroke. That was the most strong she had ever been. She denies indigestion, abdominal pain, change in bowel habits. No blood in her stool. She is occasionally incontinent of urine if she coughs or sneeze. Has never been . Musculoskeletal aches and pains definitely slow her down. She uses a walker. She is slow down enough that she lives with the family. She moved from [facility] to here a year ago. It is a family that she knew for a while and they talked her into coming here and that they would take care of her. She has a caregiver that comes for 5 times a week several hours a day. She is incontinent of urine and message her close. She warned her new family that this was problems for her and they all told her that "we can handle it come live with this". She has been very unhappy. Its been made clear to her that they resent the amount of work she presents to them. She is very sad, lonely, depressed. More than anything she is very lonely. She is very unhappy here and thinks she has made a big mistake moving to the [place] and wishes that she just ate in [facility] and had moved to an assisted living facility after selling her house. She has not had a fall in a long time. But she does lose her balance. Memory loss is mild. She still makes her own decisions. She does not have a designated power of patent attorney right now and she says that it she is going to have to rely in a power of patent attorney she would like to stay to provide her with a guardian. She has no history of seizures, syncope. She denies polyuria polydipsia polyphagia. [place] primary care provider assigned to her but she is never been able to really get into see her more than once. Trying to get her on the phone or get the office on the phone is impossible. She has been told that she needs to be seen to get the refills of her medication but she says "how can I make an appointment to be seen if they will not even answer their phones". 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 She shrugs and said they " of old age". There is no history of high blood pressure, cancer, diabetes, stroke or heart attack. She has one half brother but she is not in contact with them and does not know much about them. She has never had children Living arrangement: At home Living Situation: With caregiver(s) Social History Notes: Born and raised in [place] and then [place]. [facility]. 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 She met a friend in [place] and they ended up living together in [facility] for about 25 years. Her friend of lung cancer after a long arduous fight of 5 years. She said her depression started then. She started smoking at the age of 14 and smoked at most half a pack per day and still smokes. She has no history of alcohol abuse. She has no history of recreational substance abuse. As she was getting older and realizing that she needed to move somewhere, it was these friends and would be I will in the convince her to move here. She deeply regrets that decision - Substance History Use: Uses substance without health or social issues: NONE - POLST Patient has POLST: No POLST Status: DNR Meds/Allgy - Home Medications Home Medications: Ambulatory Orders Medication Instructions Recorded Confirmed Apixaban [Eliquis] 5 mg ORAL BID 01/13/21 12/16/21 Docusate Sodium [Dulcolax Stool 1 tab ORAL DAILY PRN 01/13/21 12/16/21 Softener] Insulin Lispro Protamin/Lispro 20 units SQ BID 01/13/21 12/16/21 [Humalog Mix 75-25 Kwikpen] Lisinopril [Zestril] 40 mg ORAL DAILY 01/13/21 12/16/21 Lovastatin 40 mg ORAL DAILY 01/13/21 12/16/21 cephALEXin [Keflex] 500 mg PO Q6H #28 cap 12/15/21 12/16/21 - Allergies Allergies/Adverse Reactions: Allergies Allergy/AdvReac Type Severity Reaction Status Date / Time No Known Drug Allergies Allergy Verified 12/15/21 07:38 Review of Systems - Constitutional Constitutional: reports: Fatigue, Malaise, Weakness. denies: Weight gain, Weight loss - Eyes Eyes: denies: Pain, Irritation, Amaurosis, Blurred vision - Ears, Nose & Throat Ears, Nose & Throat: reports: Hearing loss. denies: Sore throat, Hoarseness - Cardiovascular Cariovascular: reports: Exertional dyspnea. denies: Irregular heart rate, Palpitations, Chest pain, Decr. exercise tolerance - Respiratory Respiratory: denies: Cough, Sputum production, Wheezing, Snoring - Gastrointestinal Gastrointestinal: denies: Abdominal pain, Abdominal distention, Constipation, Diarrhea - Genitourinary Genitourinary: denies: Dysuria, Frequency, Urgency Prior Level of Functionality: She is able to ambulate using a walker. She is usually able to dress herself and feed herself. She does rely on family for grocery shopping, bill paying, transportation Exam - Vital Signs Reviewed Vital Signs: Yes Vital Signs: Vital Signs x48h Temp Pulse Pulse Resp BP BP Pulse Ox 12/16/21 16:48 37.5 C 55 L 17 186/48 H 95 12/16/21 16:22 59 L 20 177/51 H 96 12/16/21 16:06 37.6 C 12/16/21 15:42 67 15 180/120 H 98 12/16/21 13:30 20 182/45 H 97 - Physical Exam General Appearance: positive: No acute distress, Alert (Elderly female who looks stated age, comfortable), Other (Very sad. Facial expressions are muted, speech is low, frequent expressions of sadness and depression and loneliness) Eyes Bilateral: positive: PERRL, EOMI ENT: positive: No signs of dehydration Neck: positive: No JVD. negative: Stiff neck Respiratory: positive: No respiratory distress. negative: Wheezes, Rales, Rhonchi Cardiovascular: positive: Regular rate & rhythm, Systolic murmur Peripheral Pulses: positive: 1+ Abdomen: positive: Non-tender, No organomegaly, Nml bowel sounds, No distention Skin: positive: Warm, Dry, Other (Knees with abrasions) Extremities: positive: Full ROM, Pedal edema Neurologic/Psychiatric: positive: Oriented x3, CN's nml (2-12), Motor nml (No focal deficits. No tremors. She does says that she is so weak she cannot even sit herself up.) Conclusion/Plan - Problem List (1) E coli bacteremia Conclusion/Plan: Although she has generalized weakness, she is not hypotensive, bradycardic, febrile, nor did she have an elevated white cell count. Lactic acid is higher today than it was yesterday so the argument could be made that there is incipient sepsis. She is not on metformin for diabetes. Plan: Observation status IV fluids overnight IV antibiotics (2) UTI (urinary tract infection) Conclusion/Plan: As above, IV antibiotics. Wait for sensitivities to come back and changed to p.o. when appropriate Qualifiers: Urinary tract infection type: acute cystitis (3) Iliac artery aneurysm, bilateral Conclusion/Plan: Incidental finding on CT today. No intervention at this hospital. She will need outpatient follow-up (4) Contusion of left knee Conclusion/Plan: As well as contusion of the right knee due to her sliding to the ground today. Films are negative. Skin is intact except for small abrasions. Plan: Pain management with Tylenol Ice packs Qualifiers: Encounter type: initial encounter Qualified Code(s): S80.02XA - Contusion of left knee, initial encounter (5) Type 2 diabetes mellitus without complication, with medical terminologist current use of insulin pump Conclusion/Plan: She is on 22 units of lispro twice daily. Here I will change her Lantus to 10 at night, 5 units with breakfast and dinner, check A1c, and adjust insulin depending on how she does. (6) Uncontrolled hypertension Conclusion/Plan: At home she is on Zestril. I will resume that, and add as needed hydralazine (7) Adjustment reaction with anxiety and depression Conclusion/Plan: I am meeting this adriana lady for the first time. She denies any previous history of depression or anxiety. Most of her depression started as a grief reaction from her rail track maintainer's . Then selling everything she owned and moving here from [facility] in the last year made everything worse. She had hoped to have a tranquil last phase of life with peace. [place]. Companionship. None of that is happening and she finds her self very lonely and she feels like she is overstate her welcome. She would like to speak to social work about what avenues she can take to move out to a skilled nursing, assisted [facility] facility or fdc facility. - Lab Results Fish Bones: 12/16/21 13:16 12/16/21 13:16 - Diagnostic Imaging Results Diagnostic Imaging Results: positive: Final report reviewed Core Measures - Anticipated LOS I expect patient to be DC'd or transferred within 96 hours.: Yes - DVT/VTE - Prophylaxis VTE/DVT Device ordered at admit?: Yes
[2021-12-16] MEDS: ACETAMINOPHEN 325 MG TABLET PO PRN (18:18)
[2021-12-16] MEDS: APIXABAN 5 MG TABLET PO SCH (21:07)
[2021-12-16] MEDS: INSULIN GLARGINE-YFGN 300 UNIT/3 ML PEN SUBQ SCH (21:08)
[2021-12-16 21:13] LABS: BILIRUBIN,URINE NEGATIVE (NEGATIVE); GLUCOSE, URINE (UA) NEGATIVE (NEGATIVE); KETONES,URINE (UA) TRACE mg/dL (NEGATIVE); LEUKOCYTE ESTERASE, URINE SMALL (NEGATIVE); NITRITE,URINE NEGATIVE (NEGATIVE); OCCULT BLOOD,URINE SMALL (NEGATIVE); PROTEIN,URINE TRACE mg/dL (NEGATIVE); UROBILINOGEN,URINE 0.2 (NORMAL) E.U./dL (NORMAL)
[2021-12-16 21:16] LABS: CLARITY,URINE HAZY (CLEAR)
[2021-12-16 21:24] LABS: BACTERIA,URINE Rare /HPF (None Seen); SQUAMOUS EPITHELIAL CELL,UR RARE Squamous (<= Few); WBC,URINE >25 /HPF (0-5)
[2021-12-17] MEDS: SODIUM CHLORIDE FLUSH 0.9% 10 ML SYRINGE IVP SCH ×3 (01:32→17:01)
[2021-12-17] MEDS: SODIUM CHLORIDE 0.9% 1,000 ML IV SCH (02:52)
[2021-12-17] MEDS: ACETAMINOPHEN 325 MG TABLET PO PRN ×3 (02:56→20:55)
[2021-12-17 06:28] LABS: BASOPHILS # (AUTO) 0.1 10^3/uL (0.0-0.1); EOSINOPHILS # (AUTO) 0.1 10^3/uL (0.0-0.7); EOSINOPHILS % (AUTO) 1.7 %; HCT - HEMATOCRIT 32.9 % (37.0-47.0); HGB - HEMOGLOBIN 10.6 g/dL (12.0-16.0); LYMPHOCYTES # (AUTO) 0.9 10^3/uL (1.5-3.5); LYMPHOCYTES % (AUTO) 19.1 %; MEAN CORPUSCULAR HEMOGLOBIN 30.5 pg (27.0-31.0); MEAN CORPUSCULAR HGB CONC 32.2 g/dL (32.0-36.0); MEAN CORPUSCULAR VOLUME 94.8 fL (81.0-99.0); MEAN PLATELET VOLUME 9.2 fL (7.9-10.8); MONOCYTES # (AUTO) 0.4 10^3/uL (0.0-1.0); MONOCYTES % (AUTO) 8.1 %; NEUTROPHILS # (AUTO) 3.4 10^3/uL (1.5-6.6); NEUTROPHILS % (AUTO) 69.9 %; PLT - PLATELET COUNT 165 10^3/uL (130-450); RED BLOOD COUNT 3.47 10^6/uL (4.20-5.40); RED CELL DISTRIBUTION WIDTH 13.3 % (12.0-15.0); WHITE BLOOD COUNT 4.8 x10^3/uL (4.8-10.8)
[2021-12-17 06:34] LABS: CALCIUM 8.2 mg/dL (8.5-10.3); CREATININE 0.6 mg/dL (0.4-1.0); POTASSIUM 3.1 mmol/L (3.5-5.0)
--- NOTE | 2021-12-17 07:17 | PHARMACY PROGRESS NOTE ---
- Best Possible Medication History Admit Date and Time: 12/16/21 1538 Processed by: Nursing As the person ultimately responsible for medication therapy, providers are able to order a medication from an existing home medication list in [facility] via the "Reconcile Routine" prior to Confirmation of that medication by ground crewman mission support. Such practice is discouraged except when the physician, in their clinical judgment, deems that a medical need exists for a medication without regard to previous use.
[2021-12-17] MEDS ORDERED: amLODIPine 5 MG TABLET PO SCH (09:00)
[2021-12-17] MEDS ORDERED: ZINC OXIDE 20% OINT 30 GM TUBE TOP ONE (09:00)
[2021-12-17] MEDS: INSULIN LISPRO 300 UNIT/3 ML PEN SUBQ SCH ×6 (09:15→20:56)
[2021-12-17] MEDS: lisinopriL 20 MG TABLET PO SCH (09:17)
[2021-12-17] MEDS: APIXABAN 5 MG TABLET PO SCH ×2 (09:18→20:54)
[2021-12-17] MEDS: cefTRIAXone 1 GM in SODIUM CHLORIDE 0.9% MINIBAG 100 ML IV SCH (09:19)
[2021-12-17 09:48] LABS: ESTIMATED AVERAGE GLUCOSE 169 mg/dL (70-100); HEMOGLOBIN A1c% 7.5 % (4.27-6.07)
[2021-12-17] MEDS: ZINC OXIDE 20% OINT 30 GM TUBE TOP PRN ×3 (12:57→20:55)
[2021-12-17] MEDS ORDERED: LABETALOL 20 MG/4 ML SYRINGE IVP ONE (14:18)
[2021-12-17] MEDS: hydrALAZINE INJ 20 MG/ML VIAL IVP PRN (15:19)
--- NOTE | 2021-12-17 16:14 | PROVIDER PROGRESS NOTE ---
Subjective - Prog Note Date Prog Note Date: 12/17/21 Prog Note Time: 16:13 - Subjective Subjective: She was placed in observation status thinking that she just needed treatment of UTI and bacteremia to improve. In spite of antibiotics, IV fluids, she is s everely deconditioned. She is a patient who can ambulate with a walker and can usually stand to pivot, walk to the bathroom, dress herself etc. With this illness, and fall, she cannot sit up on her own. She is not able to sit up with PT today. Social work has met with her today. Starting the process of disposition. Her head hurts. She has a headache since she is was admitted. Blood pressure continues to be elevated and at times over [address] was done on admission because of her fall. And there is no acute intracranial finding. Current Medications - Current Medications Current Medications: Active Medications Acetaminophen (Acetaminophen 325 Mg Tablet) 650 mg PO Q4HR PRN PRN Reason: Pain or Fever > 38C (100.4F) Last Admin: 12/17/21 15:46 Dose: 650 mg Amlodipine Besylate (Amlodipine 5 Mg Tablet) 5 mg PO DAILY [facility] Last Admin: 12/17/21 09:18 Dose: 5 mg Apixaban (Apixaban 5 Mg Tablet) 5 mg PO BID [facility] Last Admin: 12/17/21 09:18 Dose: 5 mg Hydralazine HCl (Hydralazine Inj 20 Mg/Ml Vial) 10 mg IVP TID PRN PRN Reason: Hypertensive Emergency Last Admin: 12/17/21 15:19 Dose: 10 mg Ceftriaxone Sodium 1 gm/ (Sodium Chloride) 100 mls @ 200 mls/hr IV DAILY [facility] Last Infusion: 12/17/21 10:15 Dose: Infused Insulin Glargine-yfgn (Insulin Glargine-Yfgn 300 Unit/3 Ml Pen) 10 unit SUBQ QPM [facility] Last Admin: 12/16/21 21:08 Dose: 10 unit Insulin Human Lispro (Insulin Lispro 300 Unit/3 Ml Pen) 5 unit SUBQ QDBREAKFAST [facility]; Protocol Last Admin: 12/17/21 09:16 Dose: 5 unit Insulin Human Lispro (Insulin Lispro 300 Unit/3 Ml Pen) 5 unit SUBQ QDDINNER [facility]; Protocol Last Admin: 12/16/21 17:12 Dose: 5 unit Insulin Human Lispro (Insulin Lispro 300 Unit/3 Ml Pen) 2 - 10 unit SUBQ 0800,1200,1700,2100 [facility]; Protocol Last Admin: 12/17/21 12:21 Dose: 2 unit Lisinopril (Lisinopril 20 Mg Tablet) 40 mg PO DAILY [facility] Last Admin: 12/17/21 09:17 Dose: 40 mg Multi-Ingredient Ointment (Zinc Oxide 20% Oint 30 Gm Tube) 1 applic TOP PRN PRN PRN Reason: Skin Care Last Admin: 12/17/21 12:57 Dose: 1 applic Ondansetron HCl (Ondansetron Odt 4 Mg Tablet) 4 mg TL Q6HR PRN PRN Reason: Nausea / Vomiting Ondansetron HCl (Ondansetron 4 Mg/2 Ml Vial) 4 mg IVP Q6HR PRN PRN Reason: Nausea / Vomiting Sodium Chloride (Sodium Chloride Flush 0.9% 10 Ml Syringe) 10 ml IVP PRN PRN PRN Reason: NEEDED PER PROVIDER ORDERS Sodium Chloride (Sodium Chloride Flush 0.9% 10 Ml Syringe) 10 ml IVP 0100,0900,1700 [facility] Last Admin: 12/17/21 12:21 Dose: Not Given Apixaban [Eliquis] 5 mg ORAL BID 01/13/21 Docusate Sodium [Dulcolax Stool Softener] 1 tab ORAL DAILY PRN 01/13/21 Insulin Lispro Protamin/Lispro [Humalog Mix 75-25 Kwikpen] 20 units SQ BID 01/13/21 Lisinopril [Zestril] 40 mg ORAL DAILY 01/13/21 Lovastatin 40 mg ORAL DAILY 01/13/21 Objective - Vital Signs/Intake & Output Reviewed Vital Signs: Yes Vital Signs: Vital Signs x48h Temp Pulse Pulse Pulse Pulse Resp BP 12/17/21 16:00 55 L 12/17/21 15:49 207/53 H 12/17/21 15:45 37.2 C 55 L 24 12/17/21 15:30 51 L 12/17/21 15:25 51 L 12/17/21 15:20 51 L 12/17/21 15:17 49 L 12/17/21 12:01 37.1 C 49 L 20 12/17/21 11:30 47 L 45 L 47 L BP BP BP BP BP Pulse Ox 12/17/21 16:00 214/53 H 12/17/21 15:49 12/17/21 15:45 207/53 H 95 12/17/21 15:30 206/53 H 12/17/21 15:25 209/50 H 12/17/21 15:20 203/45 H 12/17/21 15:17 191/53 H 12/17/21 12:01 202/45 H 96 12/17/21 11:30 179/56 H 217/80 H 202/45 H Intake & Output: Intake & Output 12/14/21 12/15/21 12/16/21 12/17/21 23:59 23:59 23:59 23:59 Intake Total 1450 2565 Output Total 200 1200 Balance 1250 1365 - Objective General Appearance: positive: Alert, Other (Fatigued appearing, tearful elderly female) Eyes Bilateral: positive: PERRL ENT: positive: No signs of dehydration Neck: positive: No JVD. negative: Stiff neck Respiratory: positive: No respiratory distress. negative: Wheezes, Rales, Rhonchi Cardiovascular: positive: Regular rate & rhythm, Systolic murmur Abdomen: positive: Non-tender, No organomegaly, Nml bowel sounds, No distention, Other (Incontinent of urine and stool. Wearing a diaper.) Skin: positive: Warm, Dry Extremities: positive: Full ROM, No pedal edema Neurologic/Psychiatric: positive: Oriented x3, CN's nml (2-12). negative: Motor nml (Moderate weakness. While she is able to use her arms to roll over from side to side, and use standby assist to pull herself to a sitting position in the bed, she cannot do it by herself. She cannot put her feet to the side of the bed and stand. This is new weakness for her.) - Lab Results Fish Bones: 12/17/21 05:59 12/17/21 05:59 Other Labs: Lab Results x24hrs 12/17/21 12/17/21 12/17/21 Range/Units 11:35 07:34 05:59 WBC (4.8-10.8) x10^3/uL RBC (4.20-5.40) 10^6/uL Hgb (12.0-16.0) g/dL Hct (37.0-47.0) % MCV (81.0-99.0) fL MCH (27.0-31.0) pg MCHC (32.0-36.0) g/dL RDW (12.0-15.0) % Plt Count (130-450) 10^3/uL MPV (7.9-10.8) fL Neut # (Auto) (1.5-6.6) 10^3/uL Lymph # (Auto) (1.5-3.5) 10^3/uL [place] # (Auto) (0.0-1.0) 10^3/uL Eos # (Auto) (0.0-0.7) 10^3/uL Baso # (Auto) (0.0-0.1) 10^3/uL Absolute Nucleated RBC x10^3/uL Nucleated RBC % /100WBC Sodium (135-145) mmol/L Potassium (3.5-5.0) mmol/L Chloride (101-111) mmol/L Carbon Dioxide (21-32) mmol/L Anion Gap (6-13) BUN (6-20) mg/dL Creatinine (0.4-1.0) mg/dL Estimated GFR (MDRD) (>89) Glucose (70-100) mg/dL POC Whole Bld Glucose 175 H 129 H (70 - 100) mg/dL Estimat Average Glucose 169 H (70-100) mg/dL Hemoglobin A1c % 7.5 H (4.27-6.07) % Lactic Acid (0.5-2.2) mmol/L Calcium (8.5-10.3) mg/dL Urine Color Urine Clarity (CLEAR) Urine pH (5.0-7.5) PH Ur Specific [place] (1.002-1.030) Urine Protein (NEGATIVE) mg/dL Urine Glucose (UA) (NEGATIVE) mg/dL Urine Ketones (NEGATIVE) mg/dL Urine Occult Blood (NEGATIVE) Urine Nitrite (NEGATIVE) Urine Bilirubin (NEGATIVE) Urine Urobilinogen (NORMAL) E.U./dL Ur Leukocyte Esterase (NEGATIVE) Urine RBC (0-5) /HPF Urine WBC (0-5) /HPF Ur Squamous Epith Cells (<= Few) Urine Bacteria (None Seen) /HPF Urine Culture Comments 12/17/21 12/17/21 12/16/21 Range/Units 05:59 05:59 21:00 WBC 4.8 (4.8-10.8) x10^3/uL RBC 3.47 L (4.20-5.40) 10^6/uL Hgb 10.6 L (12.0-16.0) g/dL Hct 32.9 L (37.0-47.0) % MCV 94.8 (81.0-99.0) fL MCH 30.5 (27.0-31.0) pg MCHC 32.2 (32.0-36.0) g/dL RDW 13.3 (12.0-15.0) % Plt Count 165 (130-450) 10^3/uL MPV 9.2 (7.9-10.8) fL Neut # (Auto) 3.4 (1.5-6.6) 10^3/uL Lymph # (Auto) 0.9 L (1.5-3.5) 10^3/uL [place] # (Auto) 0.4 (0.0-1.0) 10^3/uL Eos # (Auto) 0.1 (0.0-0.7) 10^3/uL Baso # (Auto) 0.1 (0.0-0.1) 10^3/uL Absolute Nucleated RBC 0.00 x10^3/uL Nucleated RBC % 0.0 /100WBC Sodium 136 (135-145) mmol/L Potassium 3.1 L (3.5-5.0) mmol/L Chloride 105 (101-111) mmol/L Carbon Dioxide 24 (21-32) mmol/L Anion Gap 7.0 (6-13) BUN 10 (6-20) mg/dL Creatinine 0.6 (0.4-1.0) mg/dL Estimated GFR (MDRD) 96 (>89) Glucose 142 H (70-100) mg/dL POC Whole Bld Glucose (70 - 100) mg/dL Estimat Average Glucose (70-100) mg/dL Hemoglobin A1c % (4.27-6.07) % Lactic Acid (0.5-2.2) mmol/L Calcium 8.2 L (8.5-10.3) mg/dL Urine Color YELLOW Urine Clarity HAZY (CLEAR) Urine pH 6.0 (5.0-7.5) PH Ur Specific [place] 1.015 (1.002-1.030) Urine Protein TRACE (NEGATIVE) mg/dL Urine Glucose (UA) NEGATIVE (NEGATIVE) mg/dL Urine Ketones TRACE (NEGATIVE) mg/dL Urine Occult Blood SMALL H (NEGATIVE) Urine Nitrite NEGATIVE (NEGATIVE) Urine Bilirubin NEGATIVE (NEGATIVE) Urine Urobilinogen 0.2 (NORMAL) (NORMAL) E.U./dL Ur Leukocyte Esterase SMALL H (NEGATIVE) Urine RBC 6-10 H (0-5) /HPF Urine WBC >25 H (0-5) /HPF Ur Squamous Epith Cells RARE Squamous (<= Few) Urine Bacteria Rare (None Seen) /HPF Urine Culture Comments INDICATED 12/16/21 12/16/21 12/16/21 Range/Units 20:53 16:52 16:27 WBC (4.8-10.8) x10^3/uL RBC (4.20-5.40) 10^6/uL Hgb (12.0-16.0) g/dL Hct (37.0-47.0) % MCV (81.0-99.0) fL MCH (27.0-31.0) pg MCHC (32.0-36.0) g/dL RDW (12.0-15.0) % Plt Count (130-450) 10^3/uL MPV (7.9-10.8) fL Neut # (Auto) (1.5-6.6) 10^3/uL Lymph # (Auto) (1.5-3.5) 10^3/uL [place] # (Auto) (0.0-1.0) 10^3/uL Eos # (Auto) (0.0-0.7) 10^3/uL Baso # (Auto) (0.0-0.1) 10^3/uL Absolute Nucleated RBC x10^3/uL Nucleated RBC % /100WBC Sodium (135-145) mmol/L Potassium (3.5-5.0) mmol/L Chloride (101-111) mmol/L Carbon Dioxide (21-32) mmol/L Anion Gap (6-13) BUN (6-20) mg/dL Creatinine (0.4-1.0) mg/dL Estimated GFR (MDRD) (>89) Glucose (70-100) mg/dL POC Whole Bld Glucose 158 H 172 H (70 - 100) mg/dL Estimat Average Glucose (70-100) mg/dL Hemoglobin A1c % (4.27-6.07) % Lactic Acid 1.0 (0.5-2.2) mmol/L Calcium (8.5-10.3) mg/dL Urine Color Urine Clarity (CLEAR) Urine pH (5.0-7.5) PH Ur Specific [place] (1.002-1.030) Urine Protein (NEGATIVE) mg/dL Urine Glucose (UA) (NEGATIVE) mg/dL Urine Ketones (NEGATIVE) mg/dL Urine Occult Blood (NEGATIVE) Urine Nitrite (NEGATIVE) Urine Bilirubin (NEGATIVE) Urine Urobilinogen (NORMAL) E.U./dL Ur Leukocyte Esterase (NEGATIVE) Urine RBC (0-5) /HPF Urine WBC (0-5) /HPF Ur Squamous Epith Cells (<= Few) Urine Bacteria (None Seen) /HPF Urine Culture Comments ABX Reporting Has patient been on IV antibiotics over the past 48 hours?: Yes Assessment/Plan - Problem List (1) E coli bacteremia Impression: On admission she presented as generalized weakness, but she was not hypotensive, bradycardic, febrile, nor did she have an elevated white cell count. Lactic acid was higher than the day before so the argument could be made that there is incipient sepsis. She is not on metformin for diabetes. Blood cultures on December 15 with E. coli. Urine culture from December 15 is with E. coli. Repeat blood cultures after treatment on December 16 have no growth. Repeat urine culture on December 16 also has no growth. Today she remains considerably weak. Unable to be safely discharged. Plan: Change observation status to inpatient status. Continue IV fluids and IV antibiotics. PT ordered. Gram-negative bacteremia short-term require 7 days of antibiotics, moderate requires 14 days. I will most likely end up giving her to 7 days since she has no fever or white cell count. (2) UTI (urinary tract infection) Conclusion/Plan: As above, IV antibiotics. Wait for sensitivities to come back and changed to p.o. when appropriate Qualifiers: Urinary tract infection type: acute cystitis (3) Iliac artery aneurysm, bilateral Conclusion/Plan: Incidental finding on CT today. No intervention at this hospital. She will need outpatient follow-up (4) Contusion of left knee Conclusion/Plan: As well as contusion of the right knee due to her sliding to the ground on the day of admission. Films are negative. Skin is intact except for small abrasions. Plan: Pain management with Tylenol Ice packs Qualifiers: Encounter type: initial encounter Qualified Code(s): S80.02XA - Contusion of left knee, initial encounter (5) Type 2 diabetes mellitus without complication, with prison current use of insulin pump Conclusion/Plan: She is on 22 units of lispro twice daily at home. Here I changed her Lantus to 10 at night, 5 units with breakfast and dinner, check A1c, and adjust insulin depending on how she does. Glucose December 16 was 172, 158. Today she is 129 and 175. No change in tx for now since she is controlled. (6) Uncontrolled hypertension continues with a headache Conclusion/Plan: At home she is on Zestril. I had resumed her Zestril. Then I added 5 mg of Norvasc this morning. In spite of that blood pressure still high. I will continue as needed hydralazine and increase Norvasc to 10 mg. (7) Adjustment reaction with anxiety and depression Conclusion/Plan: I am meeting this adriana lady for the first time. She denies any previous history of depression or anxiety. 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 Then selling everything she owned and moving here from [facility] in the last year made everything worse. She had hoped to have a tranquil last phase of life with peace. [place]. Companionship. None of that is happening and she finds her self very lonely and she feels like she is overstate her welcome. Social work has met with her today. Starting the process of disposition. (4) Contusion of left knee Qualifiers: Qualified Code(s): S80.02XA - Contusion of left knee, initial encounter
[2021-12-17] MEDS: amLODIPine 5 MG TABLET PO SCH (17:13)
[2021-12-17] MEDS: INSULIN GLARGINE-YFGN 300 UNIT/3 ML PEN SUBQ SCH (20:56)
[2021-12-18] MEDS: SODIUM CHLORIDE FLUSH 0.9% 10 ML SYRINGE IVP SCH ×3 (01:00→19:54)
[2021-12-18] MEDS: ZINC OXIDE 20% OINT 30 GM TUBE TOP PRN ×2 (01:00→20:53)
[2021-12-18] MEDS: hydrALAZINE INJ 20 MG/ML VIAL IVP PRN ×2 (05:26→16:50)
[2021-12-18 05:55] LABS: BASOPHILS % (AUTO) 0.6 %; EOSINOPHILS # (AUTO) 0.2 10^3/uL (0.0-0.7); EOSINOPHILS % (AUTO) 2.8 %; HCT - HEMATOCRIT 36.9 % (37.0-47.0); LYMPHOCYTES # (AUTO) 1.2 10^3/uL (1.5-3.5); LYMPHOCYTES % (AUTO) 21.7 %; MEAN CORPUSCULAR HEMOGLOBIN 30.2 pg (27.0-31.0); MEAN CORPUSCULAR HGB CONC 32.5 g/dL (32.0-36.0); MEAN CORPUSCULAR VOLUME 92.9 fL (81.0-99.0); MEAN PLATELET VOLUME 9.3 fL (7.9-10.8); MONOCYTES # (AUTO) 0.6 10^3/uL (0.0-1.0); MONOCYTES % (AUTO) 11.6 %; NEUTROPHILS # (AUTO) 3.4 10^3/uL (1.5-6.6); NEUTROPHILS % (AUTO) 63.1 %; PLT - PLATELET COUNT 186 10^3/uL (130-450); RED BLOOD COUNT 3.97 10^6/uL (4.20-5.40); RED CELL DISTRIBUTION WIDTH 12.9 % (12.0-15.0); WHITE BLOOD COUNT 5.3 x10^3/uL (4.8-10.8)
[2021-12-18] MEDS: ACETAMINOPHEN 325 MG TABLET PO PRN ×2 (05:57→16:48)
[2021-12-18 06:06] LABS: CREATININE 0.6 mg/dL (0.4-1.0); POTASSIUM 3.2 mmol/L (3.5-5.0)
[2021-12-18] MEDS: INSULIN LISPRO 300 UNIT/3 ML PEN SUBQ SCH ×6 (08:58→20:51)
[2021-12-18] MEDS: amLODIPine 5 MG TABLET PO SCH (08:59)
[2021-12-18] MEDS: POTASSIUM CHLORIDE 20 MEQ TABLET PO SCH ×2 (08:59→17:21)
[2021-12-18] MEDS: lisinopriL 20 MG TABLET PO SCH (09:00)
[2021-12-18] MEDS: APIXABAN 5 MG TABLET PO SCH ×2 (09:00→20:50)
[2021-12-18] MEDS: cefTRIAXone 1 GM in SODIUM CHLORIDE 0.9% MINIBAG 100 ML IV SCH (09:02)
--- NOTE | 2021-12-18 16:42 | PROVIDER PROGRESS NOTE ---
Subjective - Prog Note Date Prog Note Date: 12/18/21 Prog Note Time: 16:49 - Subjective Subjective: Depressed, tearful. Denies chest pain, cough, palpitations. Denies abdominal pain. No urgency or frequency. Current Medications - Current Medications Current Medications: Active Medications Acetaminophen (Acetaminophen 325 Mg Tablet) 650 mg PO Q4HR PRN PRN Reason: Pain or Fever > 38C (100.4F) Last Admin: 12/18/21 16:48 Dose: 650 mg Amlodipine Besylate (Amlodipine 5 Mg Tablet) 10 mg PO DAILY [facility] Last Admin: 12/18/21 08:59 Dose: 10 mg Apixaban (Apixaban 5 Mg Tablet) 5 mg PO BID [facility] Last Admin: 12/18/21 09:00 Dose: 5 mg Ciprofloxacin (Ciprofloxacin 250 Mg Tablet) 500 mg PO BID [facility] Hydralazine HCl (Hydralazine Inj 20 Mg/Ml Vial) 10 mg IVP TID PRN PRN Reason: Hypertensive Emergency Last Admin: 12/18/21 05:26 Dose: 10 mg Insulin Glargine-yfgn (Insulin Glargine-Yfgn 300 Unit/3 Ml Pen) 14 unit SUBQ QPM [facility] Insulin Human Lispro (Insulin Lispro 300 Unit/3 Ml Pen) 5 unit SUBQ QDBREAKFAST [facility]; Protocol Last Admin: 12/18/21 08:58 Dose: 5 unit Insulin Human Lispro (Insulin Lispro 300 Unit/3 Ml Pen) 5 unit SUBQ QDDINNER [facility]; Protocol Last Admin: 12/17/21 16:58 Dose: 5 unit Insulin Human Lispro (Insulin Lispro 300 Unit/3 Ml Pen) 2 - 10 unit SUBQ 0800,1200,1700,2100 [facility]; Protocol Last Admin: 12/18/21 12:10 Dose: 4 unit Lisinopril (Lisinopril 20 Mg Tablet) 40 mg PO DAILY [facility] Last Admin: 12/18/21 09:00 Dose: 40 mg Multi-Ingredient Ointment (Zinc Oxide 20% Oint 30 Gm Tube) 1 applic TOP PRN PRN PRN Reason: Skin Care Last Admin: 12/18/21 01:00 Dose: 1 applic Ondansetron HCl (Ondansetron Odt 4 Mg Tablet) 4 mg TL Q6HR PRN PRN Reason: Nausea / Vomiting Ondansetron HCl (Ondansetron 4 Mg/2 Ml Vial) 4 mg IVP Q6HR PRN PRN Reason: Nausea / Vomiting Potassium Chloride (Potassium Chloride 20 Meq Tablet) 40 meq PO BIDWM [facility] Last Admin: 12/18/21 08:59 Dose: 40 meq Sodium Chloride (Sodium Chloride Flush 0.9% 10 Ml Syringe) 10 ml IVP PRN PRN PRN Reason: NEEDED PER PROVIDER ORDERS Sodium Chloride (Sodium Chloride Flush 0.9% 10 Ml Syringe) 10 ml IVP 0100,0900,1700 [facility] Last Admin: 12/18/21 05:27 Dose: 10 ml Apixaban [Eliquis] 5 mg ORAL BID 01/13/21 Docusate Sodium [Dulcolax Stool Softener] 1 tab ORAL DAILY PRN 01/13/21 Insulin Lispro Protamin/Lispro [Humalog Mix 75-25 Kwikpen] 20 units SQ BID 01/13/21 Lisinopril [Zestril] 40 mg ORAL DAILY 01/13/21 Lovastatin 40 mg ORAL DAILY 01/13/21 Objective - Vital Signs/Intake & Output Reviewed Vital Signs: Yes Vital Signs: Vital Signs x48h Temp Pulse Resp BP BP Pulse Ox 12/18/21 15:58 37.3 C 49 L 20 183/43 H 96 12/18/21 08:48 50 L 17 152/39 H 95 Intake & Output: Intake & Output 12/15/21 12/16/21 12/17/21 12/18/21 23:59 23:59 23:59 23:59 Intake Total 1450 3105 950 Output Total 200 2400 1600 Balance 1250 705 -650 - Objective General Appearance: positive: Alert, Moderate distress (emotionally) Eyes Bilateral: positive: PERRL, EOMI ENT: positive: No signs of dehydration Neck: positive: No JVD. negative: Stiff neck Respiratory: positive: No respiratory distress. negative: Wheezes, Rales, Rhonchi Cardiovascular: positive: Regular rate & rhythm Abdomen: positive: Non-tender, No organomegaly, Nml bowel sounds, No distention Skin: positive: Warm, Dry Extremities: positive: Full ROM, No pedal edema Neurologic/Psychiatric: positive: Oriented x3, CN's nml (2-12), Motor nml (she does not have any focal deficits. She just has generalized weakness, and requiring assist to get up.) - Lab Results Fish Bones: 12/18/21 05:25 12/18/21 05:25 Other Labs: Lab Results x24hrs 12/18/21 12/18/21 12/18/21 Range/Units 11: 07:42 05:25 WBC (4.8-10.8) x10^3/uL RBC (4.20-5.40) 10^6/uL Hgb (12.0-16.0) g/dL Hct (37.0-47.0) % MCV (81.0-99.0) fL MCH (27.0-31.0) pg MCHC (32.0-36.0) g/dL RDW (12.0-15.0) % Plt Count (130-450) 10^3/uL MPV (7.9-10.8) fL Neut # (Auto) (1.5-6.6) 10^3/uL Lymph # (Auto) (1.5-3.5) 10^3/uL [place] # (Auto) (0.0-1.0) 10^3/uL Eos # (Auto) (0.0-0.7) 10^3/uL Baso # (Auto) (0.0-0.1) 10^3/uL Absolute Nucleated RBC x10^3/uL Nucleated RBC % /100WBC Sodium 141 (135-145) mmol/L Potassium 3.2 L (3.5-5.0) mmol/L Chloride 106 (101-111) mmol/L Carbon Dioxide 26 (21-32) mmol/L Anion Gap 9.0 (6-13) BUN 7 (6-20) mg/dL Creatinine 0.6 (0.4-1.0) mg/dL Estimated GFR (MDRD) 96 (>89) Glucose 165 H (70-100) mg/dL POC Whole Bld Glucose 199 H 179 H (70 - 100) mg/dL Calcium 9.0 (8.5-10.3) mg/dL 12/18/21 12/17/21 Range/Units 05:25 20:44 WBC 5.3 (4.8-10.8) x10^3/uL RBC 3.97 L (4.20-5.40) 10^6/uL Hgb 12.0 (12.0-16.0) g/dL Hct 36.9 L (37.0-47.0) % MCV 92.9 (81.0-99.0) fL MCH 30.2 (27.0-31.0) pg MCHC 32.5 (32.0-36.0) g/dL RDW 12.9 (12.0-15.0) % Plt Count 186 (130-450) 10^3/uL MPV 9.3 (7.9-10.8) fL Neut # (Auto) 3.4 (1.5-6.6) 10^3/uL Lymph # (Auto) 1.2 L (1.5-3.5) 10^3/uL [place] # (Auto) 0.6 (0.0-1.0) 10^3/uL Eos # (Auto) 0.2 (0.0-0.7) 10^3/uL Baso # (Auto) 0.0 (0.0-0.1) 10^3/uL Absolute Nucleated RBC 0.00 x10^3/uL Nucleated RBC % 0.0 /100WBC Sodium (135-145) mmol/L Potassium (3.5-5.0) mmol/L Chloride (101-111) mmol/L Carbon Dioxide (21-32) mmol/L Anion Gap (6-13) BUN (6-20) mg/dL Creatinine (0.4-1.0) mg/dL Estimated GFR (MDRD) (>89) Glucose (70-100) mg/dL POC Whole Bld Glucose 208 H (70 - 100) mg/dL Calcium (8.5-10.3) mg/dL ABX Reporting Has patient been on IV antibiotics over the past 48 hours?: Yes Assessment/Plan - Problem List (1) E coli bacteremia Impression: On admission she presented as generalized weakness, but she was not hypotensive, bradycardic, febrile, nor did she have an elevated white cell count. Lactic acid was higher than the day before so the argument could be made that there is incipient sepsis. She is not on metformin for diabetes. Blood cultures on December 15 with E. coli. Urine culture from December 15 is with E. coli. Repeat blood cultures after treatment on December 16 have no growth. Repeat urine culture on December 16 also has no growth. At baseline this woman is ambulatory with a walker. Able to dress herself and feed herself. With this current infection and admission, she is very weak. Cannot stand on her own. Unable to be safely discharged. She is pansensitive with regards to E. coli treatment. These are on the cultures from December 15. Plan: Gram-negative bacteremia short-term require 7 days of antibiotics, moderate requires 14 days. I will most likely end up giving her to 7 days since she has no fever or white cell count. Changed to p.o. antibiotics. I have chosen to start her on Cipro. She will need Cipro until December 22. (2) UTI (urinary tract infection) Conclusion/Plan: As above, IV antibiotics. Monitor for signs and symptoms of recurrent sepsis. Qualifiers: Urinary tract infection type: acute cystitis (3) Iliac artery aneurysm, bilateral Conclusion/Plan: Incidental finding on CT today. No intervention at this hospital. She will need outpatient follow-up (4) Contusion of left knee Conclusion/Plan: As well as contusion of the right knee due to her sliding to the ground on the day of admission. Films are negative. Skin is intact except for small abrasions. 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 Here I changed her Lantus to 10 at night, 5 units with breakfast and dinner, check A1c, and adjust insulin depending on how she does. Today's glucose is 179 and 199. Last night she was as high as 208. Plan: Increase Semglee to 14 units tonight. Continue 5 units with dinner and breakfast, and sliding scale insulin. (6) Uncontrolled hypertension continues with a headache Conclusion/Plan: At home she is on Zestril. I had resumed her Zestril. Then I added 5 mg of Norvasc 12/17. In spite of that blood pressure was still high. I continued as needed hydralazine and increased Norvasc to 10 mg. Today she has been consistently 180-182 systolic. Headache is gone. Continue to monitor. The combination of Zestril and Norvasc may take a few days. (7) Adjustment reaction with anxiety and depression Conclusion/Plan: I am meeting this adriana lady for the first time. She denies any previous history of depression or anxiety. 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 Then selling everything she owned and moving here from [facility] in the last year made everything worse. She had hoped to have a tranquil last phase of life with peace. [place]. Companionship. None of that is happening and she finds her self very lonely and she feels like she is overstayed her welcome. Social work met with her on December 17 to give her pamphlets for assisted living facility or snf facilities. Today discharge planning went in to follow-up on this conversation and the patient burst into tears and became inconsolable. Unable to have a conversation. We gave her some time and I walked back in again. She is just grieving. She is adamant that she does not want to go to a snf facility but at the same time she says she does not want to go back to where she is living. Then I told her she is to call between a rock and a hard place. She is not independent enough for ambulatory enough at this point in time due to weakness to be able to live in a skilled nursing. She reluctantly agrees to go to a temporary snf facility for rehab it is good to be starting to look for a skilled nursing.
[2021-12-18] MEDS: CIPROFLOXACIN 250 MG TABLET PO SCH (20:50)
[2021-12-18] MEDS: INSULIN GLARGINE-YFGN 300 UNIT/3 ML PEN SUBQ SCH (20:52)
[2021-12-19] MEDS: ZINC OXIDE 20% OINT 30 GM TUBE TOP PRN ×2 (01:25→13:24)
[2021-12-19] MEDS: SODIUM CHLORIDE FLUSH 0.9% 10 ML SYRINGE IVP SCH ×3 (01:25→17:11)
[2021-12-19] MEDS: ACETAMINOPHEN 325 MG TABLET PO PRN (03:03)
[2021-12-19] MEDS: hydrALAZINE INJ 20 MG/ML VIAL IVP PRN (03:03)
[2021-12-19 06:09] LABS: BASOPHILS % (AUTO) 0.5 %; EOSINOPHILS # (AUTO) 0.2 10^3/uL (0.0-0.7); EOSINOPHILS % (AUTO) 2.3 %; HCT - HEMATOCRIT 32.4 % (37.0-47.0); HGB - HEMOGLOBIN 10.5 g/dL (12.0-16.0); LYMPHOCYTES # (AUTO) 1.4 10^3/uL (1.5-3.5); LYMPHOCYTES % (AUTO) 22.4 %; MEAN CORPUSCULAR HGB CONC 32.4 g/dL (32.0-36.0); MEAN CORPUSCULAR VOLUME 92.6 fL (81.0-99.0); MEAN PLATELET VOLUME 9.4 fL (7.9-10.8); MONOCYTES # (AUTO) 0.7 10^3/uL (0.0-1.0); MONOCYTES % (AUTO) 11.1 %; NEUTROPHILS # (AUTO) 4.1 10^3/uL (1.5-6.6); NEUTROPHILS % (AUTO) 63.4 %; PLT - PLATELET COUNT 177 10^3/uL (130-450); RED CELL DISTRIBUTION WIDTH 13.1 % (12.0-15.0); WHITE BLOOD COUNT 6.4 x10^3/uL (4.8-10.8)
[2021-12-19 06:19] LABS: CALCIUM 8.6 mg/dL (8.5-10.3); CREATININE 0.6 mg/dL (0.4-1.0); POTASSIUM 3.7 mmol/L (3.5-5.0)
[2021-12-19] MEDS: INSULIN LISPRO 300 UNIT/3 ML PEN SUBQ SCH ×6 (08:14→21:00)
[2021-12-19] MEDS: lisinopriL 20 MG TABLET PO SCH (08:15)
[2021-12-19] MEDS: APIXABAN 5 MG TABLET PO SCH ×2 (08:15→21:01)
[2021-12-19] MEDS: amLODIPine 5 MG TABLET PO SCH (08:15)
[2021-12-19] MEDS: POTASSIUM CHLORIDE 20 MEQ TABLET PO SCH ×2 (08:15→17:17)
[2021-12-19] MEDS: CIPROFLOXACIN 250 MG TABLET PO SCH ×2 (08:15→21:01)
--- NOTE | 2021-12-19 16:12 | PROVIDER PROGRESS NOTE ---
Progress Note December 19, 2021 3:50 PM Emotionally she is less distraught than she was yesterday. When discussing possible discharge needs that would include SNF she just became overcome with emotions and cried for almost an hour. I was able to speak to her afterwards and she is just very sad. She denies chest pain. She denies cough, abdominal pain. No urgency or frequency. She did work with physical therapy today. And they do state that she is not strong enough for discharge. At home she usually walks with a walker and is able to dress herself and feed herself. Today she is so weak that she needs assist with going from supine to sitting. Cannot stand very well. Active Medications Acetaminophen (Acetaminophen 325 Mg Tablet) 650 mg PO Q4HR PRN PRN Reason: Pain or Fever > 38C (100.4F) Last Admin: 12/19/21 03:03 Dose: 650 mg Amlodipine Besylate (Amlodipine 5 Mg Tablet) 10 mg PO DAILY [facility] Last Admin: 12/19/21 08:15 Dose: 10 mg Apixaban (Apixaban 5 Mg Tablet) 5 mg PO BID [facility] Last Admin: 12/19/21 08:15 Dose: 5 mg Ciprofloxacin (Ciprofloxacin 250 Mg Tablet) 500 mg PO BID [facility] Last Admin: 12/19/21 08:15 Dose: 500 mg Hydralazine HCl (Hydralazine Inj 20 Mg/Ml Vial) 10 mg IVP TID PRN PRN Reason: Hypertensive Emergency Last Admin: 12/19/21 03:03 Dose: 10 mg Insulin Glargine-yfgn (Insulin Glargine-Yfgn 300 Unit/3 Ml Pen) 14 unit SUBQ QPM [facility] Last Admin: 12/18/21 20:52 Dose: 14 unit Insulin Human Lispro (Insulin Lispro 300 Unit/3 Ml Pen) 5 unit SUBQ QDBREAKFAST [facility]; Protocol Last Admin: 12/19/21 08:14 Dose: 5 unit Insulin Human Lispro (Insulin Lispro 300 Unit/3 Ml Pen) 5 unit SUBQ QDDINNER [facility]; Protocol Last Admin: 12/18/21 17:22 Dose: 5 unit Insulin Human Lispro (Insulin Lispro 300 Unit/3 Ml Pen) 2 - 10 unit SUBQ 0800,1200,1700,2100 [facility]; Protocol Last Admin: 12/19/21 12:01 Dose: 2 unit Lisinopril (Lisinopril 20 Mg Tablet) 40 mg PO DAILY [facility] Last Admin: 12/19/21 08:15 Dose: 40 mg Multi-Ingredient Ointment (Zinc Oxide 20% Oint 30 Gm Tube) 1 applic TOP PRN PRN PRN Reason: Skin Care Last Admin: 12/19/21 13:24 Dose: 1 applic Ondansetron HCl (Ondansetron Odt 4 Mg Tablet) 4 mg TL Q6HR PRN PRN Reason: Nausea / Vomiting Ondansetron HCl (Ondansetron 4 Mg/2 Ml Vial) 4 mg IVP Q6HR PRN PRN Reason: Nausea / Vomiting Potassium Chloride (Potassium Chloride 20 Meq Tablet) 40 meq PO BIDWM [facility] Last Admin: 12/19/21 08:15 Dose: 40 meq Sodium Chloride (Sodium Chloride Flush 0.9% 10 Ml Syringe) 10 ml IVP PRN PRN PRN Reason: NEEDED PER PROVIDER ORDERS Last Admin: 12/19/21 03:04 Dose: 30 ml Sodium Chloride (Sodium Chloride Flush 0.9% 10 Ml Syringe) 10 ml IVP 0100,0900,1700 [facility] Last Admin: 12/19/21 08:13 Dose: 10 ml Apixaban [Eliquis] 5 mg ORAL BID 01/13/21 Docusate Sodium [Dulcolax Stool Softener] 1 tab ORAL DAILY PRN 01/13/21 Insulin Lispro Protamin/Lispro [Humalog Mix 75-25 Kwikpen] 20 units SQ BID 01/13/21 Lisinopril [Zestril] 40 mg ORAL DAILY 01/13/21 Lovastatin 40 mg ORAL DAILY 01/13/21 Exam Temperature is 37.2. Heart rate is 50. Blood pressure 153/54. 5 to 10 inch female, 105.5 kg Alert oriented female, looks stated age, alert, cooperative. Emotionally much more controlled today. Neck is supple without JVD Lungs have diminished breath sounds at the bases but there is no increased respiratory effort at rest. She does get mildly tachypneic with trying to stand up and walk a few feet. Regular rate and rhythm with no murmur Abdomen is soft, nontender, with a bowel movement today. Extremities are warm, no clubbing cyanosis or edema. White cell count 6.4. Hemoglobin 10.5. Platelets 117 BMP normal with random glucose 159. Assessment/plan: 1. E. coli bacteremia. Day 4/7 of antibiotics for E. coli bacteremia and E. coli UTI. She was switched to p.o. December 18. So far there has been no recurrence of fever, white cell count is stayed elevated. No new symptoms. Plan: Complete 7 days of antibiotic therapy 2. Muscle deconditioning. This unfortunate female is usually ambulatory with a walker at her residence. While she does need help due to musculoskeletal aches and pains, and her overall slowing down due to aging, she has been able to ambulate safely. This current infection has severely weakened her, resulted in a fall with left knee contusion. Plan: Patient to [place] choice [place] [facility] for [facility] re[facility] and Social work met with her today. She would like to then be transition to a fdc after discharge. I told her that she and her current family could make that happen once she is done with rehab. 3. Type 2 diabetes mellitus without complication, with long-term use of insulin. December 18 glucose 179, 163, 135. Today she is 150 and 155. This is with Semglee 14 units at night. Lispro 5 units with dinner and breakfast. And sliding scale lispro on top of the fixed regular schedule. Overall controlled. No change in management (At home she takes lispro 20 units with breakfast and with dinner, if she goes to a [place] [facility] facility would not resume this regimen) 4. Uncontrolled hypertension. Patient was symptomatic with a headache and some mild nausea. She is on Zestril which is her usual home med. I added Norvasc 5, then increase it to 10. Blood pressure is gradually come down. She was consistently over 200 then she was down to the 180s. Today she is in the 150s. Plan: Continue new Norvasc and usual home Zestril
[2021-12-19] MEDS: INSULIN GLARGINE-YFGN 300 UNIT/3 ML PEN SUBQ SCH (21:00)
[2021-12-20] MEDS: SODIUM CHLORIDE FLUSH 0.9% 10 ML SYRINGE IVP SCH ×3 (01:09→17:26)
[2021-12-20 05:12] LABS: BASOPHILS % (AUTO) 0.5 %; EOSINOPHILS # (AUTO) 0.2 10^3/uL (0.0-0.7); EOSINOPHILS % (AUTO) 3.5 %; HCT - HEMATOCRIT 33.7 % (37.0-47.0); LYMPHOCYTES # (AUTO) 1.9 10^3/uL (1.5-3.5); LYMPHOCYTES % (AUTO) 32.2 %; MEAN CORPUSCULAR HEMOGLOBIN 30.5 pg (27.0-31.0); MEAN CORPUSCULAR HGB CONC 32.6 g/dL (32.0-36.0); MEAN CORPUSCULAR VOLUME 93.4 fL (81.0-99.0); MEAN PLATELET VOLUME 9.4 fL (7.9-10.8); MONOCYTES # (AUTO) 0.6 10^3/uL (0.0-1.0); MONOCYTES % (AUTO) 9.3 %; NEUTROPHILS # (AUTO) 3.3 10^3/uL (1.5-6.6); PLT - PLATELET COUNT 206 10^3/uL (130-450); RED BLOOD COUNT 3.61 10^6/uL (4.20-5.40)
[2021-12-20 05:17] LABS: CALCIUM 8.9 mg/dL (8.5-10.3); CREATININE 0.6 mg/dL (0.4-1.0); POTASSIUM 4.3 mmol/L (3.5-5.0)
[2021-12-20] MEDS: hydrALAZINE INJ 20 MG/ML VIAL IVP PRN (07:51)
[2021-12-20] MEDS: POTASSIUM CHLORIDE 20 MEQ TABLET PO SCH ×2 (07:55→17:26)
[2021-12-20] MEDS: amLODIPine 5 MG TABLET PO SCH (07:56)
[2021-12-20] MEDS: APIXABAN 5 MG TABLET PO SCH ×2 (07:56→21:32)
[2021-12-20] MEDS: lisinopriL 20 MG TABLET PO SCH (07:56)
[2021-12-20] MEDS: CIPROFLOXACIN 250 MG TABLET PO SCH ×2 (07:56→21:32)
[2021-12-20] MEDS: INSULIN LISPRO 300 UNIT/3 ML PEN SUBQ SCH ×6 (07:58→21:33)
--- NOTE | 2021-12-20 18:40 | PROVIDER PROGRESS NOTE ---
Assessment/Plan - Problem List (1) E coli bacteremia Assessment/Plan: Day 5/7 of antibiotics for E. coli bacteremia and E. coli UTI. She was switched to p.o. antibiotic on December 18. So far there has been no recurrence of fever, white cell count is stayed elevated. No new symptoms. Plan: Complete 7 days of antibiotic therapy 2. Muscle deconditioning. This unfortunate female is usually ambulatory with a walker at her residence. While she does need help due to musculoskeletal aches and pains, and her overall slowing down due to aging, she has been able to ambulate safely. This current infection has severely weakened her, resulted in a fall with left knee contusion . Plan: Patient to be choice for [facility] facility for temporary rehab and Social work met with her. She would like to then be transition to a nursing home after discharge, and we told her that she and her current family could make that happen once she is done with rehab. 3. Type 2 diabetes mellitus without complication, with long-term use of insulin. Glu are running 130-170. This is with Semglee 14 units at night. Lispro 5 units with dinner and breakfast. And sliding scale lispro on top of the fixed regular schedule. Overall controlled. (At home she takes lispro 20 units with breakfast and with dinner, if she goes to a [facility] facility would not resume this regimen). Plan: No change in management 4. HTN Patient was symptomatic with a headache and some mild nausea. She is on Zestril which is her usual home med. I added Norvasc 5, then increase it to 10. Blood pressure has gradually come down. She was consistently over 200 then she was down to the 180s, then 150s. Plan: Continue new Norvasc and usual home Zestril - Current Meds Current Meds: Current Medications Generic Name Dose Route Start Last Admin Trade Name Freq PRN Reason Stop Dose Admin Acetaminophen 650 mg 12/16/21 17:46 12/19/21 03:03 Acetaminophen 325 Mg Tablet PO 650 mg Q4HR PRN Administration Pain or Fever > 38C (100.4F) Amlodipine Besylate 10 mg 12/17/21 17:00 12/20/21 07:56 Amlodipine 5 Mg Tablet PO 10 mg DAILY [facility] Administration Apixaban 5 mg 12/16/21 21:00 12/20/21 07:56 Apixaban 5 Mg Tablet PO 5 mg BID [facility] Administration Ciprofloxacin 500 mg 12/18/21 21:00 12/20/21 07:56 Ciprofloxacin 250 Mg Tablet PO 500 mg BID [facility] Administration Hydralazine HCl 10 mg 12/17/21 15:14 12/20/21 07:51 Hydralazine Inj 20 Mg/Ml Vial IVP 10 mg TID PRN Administration Hypertensive Emergency Insulin Glargine-yfgn 14 unit 12/18/21 21:00 12/19/21 21:00 Insulin Glargine-Yfgn 300 Unit/3 Ml Pen SUBQ 14 unit QPM [facility] Administration Insulin Human Lispro 5 unit 12/17/21 08:00 12/20/21 07:58 Insulin Lispro 300 Unit/3 Ml Pen SUBQ 5 unit QDBREAKFAST [facility] Administration Protocol Insulin Human Lispro 5 unit 12/16/21 17:00 12/20/21 17:25 Insulin Lispro 300 Unit/3 Ml Pen SUBQ 5 unit QDDINNER [facility] Administration Protocol Insulin Human Lispro 2 - 10 unit 12/16/21 17:00 12/20/21 17:26 Insulin Lispro 300 Unit/3 Ml Pen SUBQ 2 unit 0800,1200,1700,2100 [facility] Administration Protocol Lisinopril 40 mg 12/17/21 09:00 12/20/21 07:56 Lisinopril 20 Mg Tablet PO 40 mg DAILY [facility] Administration Multi-Ingredient Ointment 1 applic 12/17/21 12:52 12/19/21 13:24 Zinc Oxide 20% Oint 30 Gm Tube TOP 1 applic PRN PRN Administration Skin Care Potassium Chloride 40 meq 12/18/21 08:00 12/20/21 17:26 Potassium Chloride 20 Meq Tablet PO 40 meq BIDWM [facility] Administration Sodium Chloride 10 ml 12/16/21 15:38 12/19/21 03:04 Sodium Chloride Flush 0.9% 10 Ml Syringe IVP 30 ml PRN PRN Administration NEEDED PER PROVIDER ORDERS Sodium Chloride 10 ml 12/16/21 17:00 12/20/21 17:26 Sodium Chloride Flush 0.9% 10 Ml Syringe IVP 10 ml 0100,0900,1700 [facility] Administration - Lab Result Fish Bone Diagrams: 12/21/21 05:45 12/21/21 05:45 Subjective - Subjective Patient Reports: Resting Comfortably, Pain (Describes pain in L toes when she bends them) Objective Vital Signs: Vital Signs - 24 hr 12/19/21 12/20/21 12/20/21 23:35 00:00 07:22 Temperature 37.0 C 36.9 C 36.7 C Heart Rate [ 52 L Brachial] Heart Rate [ 52 L 50 L Radial] Respiratory 18 16 Rate Blood Pressure Blood Pressure 149/38 H 190/69 H [Left Brachial artery] Blood Pressure 152/43 H [Right Brachial artery] O2 Saturation 95 96 94 12/20/21 12/20/21 12/20/21 07:51 08:21 12:30 Temperature Heart Rate [ 55 L Brachial] Heart Rate [ Radial] Respiratory Rate Blood Pressure 192/52 H 164/41 H Blood Pressure 148/61 H [Left Brachial artery] Blood Pressure [Right Brachial artery] O2 Saturation 12/20/21 12/20/21 15:59 16:31 Temperature 37.1 C Heart Rate [ 51 L 50 L Brachial] Heart Rate [ Radial] Respiratory 18 Rate Blood Pressure Blood Pressure 186/51 H 170/51 H [Left Brachial artery] Blood Pressure [Right Brachial artery] O2 Saturation 95 Oxygen O2 Source Room air I&O (Last 24 Hrs): Intake and Output Totals x24h 12/18/21 12/19/21 12/20/21 23:59 23:59 23:59 Intake Total 1810 1610 1330 Output Total 1900 1050 1400 Balance -90 560 -70 General: Alert, No acute distress HEENT: EOMI, Mucous membr. moist/pink Neck: Supple, No JVD Neuro: Alert, Disoriented Cardiovascular: No murmurs Respiratory: No respiratory distress, Breath sounds nml Abdomen: Normal bowel sounds, Soft Extremities: No clubbing, No edema, No tenderness/swelling - Results Results: Laboratory Results WBC 6.0 x10^3/uL (4.8-10.8) 12/20/21 04:46 RBC 3.61 10^6/uL (4.20-5.40) L 12/20/21 04:46 Hgb 11.0 g/dL (12.0-16.0) L 12/20/21 04:46 Hct 33.7 % (37.0-47.0) L 12/20/21 04:46 MCV 93.4 fL (81.0-99.0) 12/20/21 04:46 MCH 30.5 pg (27.0-31.0) 12/20/21 04:46 MCHC 32.6 g/dL (32.0-36.0) 12/20/21 04:46 RDW 13.0 % (12.0-15.0) 12/20/21 04:46 Plt Count 206 10^3/uL (130-450) 12/20/21 04:46 MPV 9.4 fL (7.9-10.8) 12/20/21 04:46 Neut # (Auto) 3.3 10^3/uL (1.5-6.6) 12/20/21 04:46 Lymph # (Auto) 1.9 10^3/uL (1.5-3.5) 12/20/21 04:46 [place] # (Auto) 0.6 10^3/uL (0.0-1.0) 12/20/21 04:46 Eos # (Auto) 0.2 10^3/uL (0.0-0.7) 12/20/21 04:46 Baso # (Auto) 0.0 10^3/uL (0.0-0.1) 12/20/21 04:46 Absolute Nucleated RBC 0.00 x10^3/uL 12/20/21 04:46 Nucleated RBC % 0.0 /100WBC 12/20/21 04:46 Sodium 139 mmol/L (135-145) 12/20/21 04:46 Potassium 4.3 mmol/L (3.5-5.0) 12/20/21 04:46 Chloride 107 mmol/L (101-111) 12/20/21 04:46 Carbon Dioxide 25 mmol/L (21-32) 12/20/21 04:46 Anion Gap 7.0 (6-13) 12/20/21 04:46 BUN 14 mg/dL (6-20) 12/20/21 04:46 Creatinine 0.6 mg/dL (0.4-1.0) 12/20/21 04:46 Estimated GFR (MDRD) 96 (>89) 12/20/21 04:46 Glucose 176 mg/dL (70-100) H 12/20/21 04:46 POC Whole Bld Glucose 171 mg/dL (70 - 100) H 12/20/21 16:37 Estimat Average Glucose 169 mg/dL (70-100) H 12/17/21 05:59 Hemoglobin A1c % 7.5 % (4.27-6.07) H 12/17/21 05:59 Lactic Acid 1.0 mmol/L (0.5-2.2) 12/16/21 16:27 Calcium 8.9 mg/dL (8.5-10.3) 12/20/21 04:46 Total Bilirubin 0.4 mg/dL (0.2-1.0) 12/16/21 13:16 AST 19 IU/L (10-42) 12/16/21 13:16 ALT 12 IU/L (10-60) 12/16/21 13:16 Alkaline Phosphatase 59 IU/L (42-121) 12/16/21 13:16 Total Protein 6.7 g/dL (6.7-8.2) 12/16/21 13:16 Albumin 3.3 g/dL (3.2-5.5) 12/16/21 13:16 Globulin 3.4 g/dL (2.1-4.2) 12/16/21 13:16 Albumin/Globulin Ratio 1.0 (1.0-2.2) 12/16/21 13:16 Urine Color YELLOW 12/16/21 21:00 Urine Clarity HAZY (CLEAR) 12/16/21 21:00 Urine pH 6.0 PH (5.0-7.5) 12/16/21 21:00 Ur Specific [place] 1.015 (1.002-1.030) 12/16/21 21:00 Urine Protein TRACE mg/dL (NEGATIVE) 12/16/21 21:00 Urine Glucose (UA) NEGATIVE mg/dL (NEGATIVE) 12/16/21 21:00 Urine Ketones TRACE mg/dL (NEGATIVE) 12/16/21 21:00 Urine Occult Blood SMALL (NEGATIVE) H 12/16/21 21:00 Urine Nitrite NEGATIVE (NEGATIVE) 12/16/21 21:00 Urine Bilirubin NEGATIVE (NEGATIVE) 12/16/21 21:00 Urine Urobilinogen 0.2 (NORMAL) E.U./dL (NORMAL) 12/16/21 21:00 Ur Leukocyte Esterase SMALL (NEGATIVE) H 12/16/21 21:00 Urine RBC 6-10 /HPF (0-5) H 12/16/21 21:00 Urine WBC >25 /HPF (0-5) H 12/16/21 21:00 Ur Squamous Epith Cells RARE Squamous (<= Few) 12/16/21 21:00 Urine Bacteria Rare /HPF (None Seen) 12/16/21 21:00 Urine Culture Comments INDICATED 12/16/21 21:00
[2021-12-20] MEDS: INSULIN GLARGINE-YFGN 300 UNIT/3 ML PEN SUBQ SCH (21:32)
[2021-12-21 05:53] LABS: EOSINOPHILS % (AUTO) 3.8 %; HGB - HEMOGLOBIN 10.9 g/dL (12.0-16.0)
[2021-12-21 05:56] LABS: BASOPHILS % (AUTO) 0.8 %; HCT - HEMATOCRIT 33.6 % (37.0-47.0); LYMPHOCYTES % (AUTO) 28.9 %; MEAN CORPUSCULAR HEMOGLOBIN 30.5 pg (27.0-31.0); MEAN CORPUSCULAR HGB CONC 32.4 g/dL (32.0-36.0); MEAN CORPUSCULAR VOLUME 94.1 fL (81.0-99.0); MEAN PLATELET VOLUME 9.1 fL (7.9-10.8); MONOCYTES % (AUTO) 7.6 %; NEUTROPHILS % (AUTO) 58.6 %; PLT - PLATELET COUNT 235 10^3/uL (130-450); RED BLOOD COUNT 3.57 10^6/uL (4.20-5.40); RED CELL DISTRIBUTION WIDTH 13.1 % (12.0-15.0); WHITE BLOOD COUNT 6.3 x10^3/uL (4.8-10.8)
[2021-12-21 06:02] LABS: CALCIUM 8.7 mg/dL (8.5-10.3); CREATININE 0.6 mg/dL (0.4-1.0); POTASSIUM 4.3 mmol/L (3.5-5.0)
[2021-12-21 06:03] LABS: ABNORMAL LYMPHS % (MANUAL) 0 %
[2021-12-21] MEDS: SODIUM CHLORIDE FLUSH 0.9% 10 ML SYRINGE IVP SCH ×3 (06:16→16:53)
[2021-12-21 06:29] LABS: BAND NEUTROPHILS % (MANUAL) 4 %; EOSINOPHILS # (MANUAL) 0.3 10^3/uL (0-0.7); LYMPHOCYTES # (MANUAL) 1.6 10^3/uL (1.5-3.5); LYMPHOCYTES % (MANUAL) 23 %; MONOCYTES # (MANUAL) 0.4 10^3/uL (0.0-1.0); RBC MORPHOLOGY (MULTIPLE) 1+ ANISOCYTOSIS (NORMAL); REACTIVE LYMPHS % (MANUAL) 3 %
[2021-12-21 06:30] LABS: DIFFERENTIAL COMMENT MANUAL DIFFERENTIAL; PLATELET ESTIMATE, MANUAL NORMAL (130-450,000) (NORMAL); PLATELET MORPHOLOGY NORMAL APPEARANCE (NORMAL)
[2021-12-21] MEDS: hydrALAZINE INJ 20 MG/ML VIAL IVP PRN (07:47)
[2021-12-21] MEDS: APIXABAN 5 MG TABLET PO SCH ×2 (07:48→22:04)
[2021-12-21] MEDS: POTASSIUM CHLORIDE 20 MEQ TABLET PO SCH ×2 (07:48→16:53)
[2021-12-21] MEDS: lisinopriL 20 MG TABLET PO SCH (07:48)
[2021-12-21] MEDS: CIPROFLOXACIN 250 MG TABLET PO SCH ×2 (07:49→22:04)
[2021-12-21] MEDS: INSULIN LISPRO 300 UNIT/3 ML PEN SUBQ SCH ×6 (07:49→22:05)
[2021-12-21] MEDS: amLODIPine 5 MG TABLET PO SCH (07:49)
[2021-12-21] MEDS: hydrALAZINE 25 MG TABLET PO SCH ×2 (11:58→22:04)
--- NOTE | 2021-12-21 16:59 | PROVIDER PROGRESS NOTE ---
Assessment/Plan - Problem List (1) E coli bacteremia Assessment/Plan: Day 6/7 of antibiotics for E. coli bacteremia and E. coli UTI. She was switched to p.o. antibiotic on December 18. So far there has been no recurrence of fever, white cell count is stayed elevated. No new symptoms. Plan: Complete 7 days of antibiotic therapy 2. Muscle deconditioning. This unfortunate female is usually ambulatory with a walker at her residence. While she does need help due to musculoskeletal aches and pains, and her overall slowing down due to aging, she has been able to ambulate safely. This current infection has severely weakened her, resulted in a fall with left knee contusion. Plan: Patient to be choice for intermediate facility for temporary rehab and Social work met with her. She would like to then be transition to a intermediate after discharge, and we told her that she and her current family could make that happen once she is done with rehab. 3. Type 2 diabetes mellitus without complication, with long-term use of insulin. Glu are running 130-170. This is with Semglee 14 units at night. Lispro 5 units with dinner and breakfast. And sliding scale lispro on top of the fixed regular schedule. Overall controlled. (At home she takes lispro 20 units with breakfast and with dinner, if she goes to a intermediate facility would not resume this regimen). Plan: No change in management 4. HTN Patient was symptomatic with a headache and some mild nausea. She is on Zestril which is her usual home med. I added Norvasc 5, then increase it to 10. Blood pressure has gradually come down. She was consistently over 200 then she was down to the 180s, then 150s. Plan: Continue new Norvasc and usual home Zestril - Current Meds Current Meds: Current Medications Generic Name Dose Route Start Last Admin Trade Name Freq PRN Reason Stop Dose Admin Acetaminophen 650 mg 12/16/21 17:46 12/19/21 03:03 Acetaminophen 325 Mg Tablet PO 650 mg Q4HR PRN Administration Pain or Fever > 38C (100.4F) Amlodipine Besylate 10 mg 12/17/21 17:00 12/21/21 07:49 Amlodipine 5 Mg Tablet PO 10 mg DAILY [facility] Administration Apixaban 5 mg 12/16/21 21:00 12/21/21 07:48 Apixaban 5 Mg Tablet PO 5 mg BID [facility] Administration Ciprofloxacin 500 mg 12/18/21 21:00 12/21/21 07:49 Ciprofloxacin 250 Mg Tablet PO 500 mg BID [facility] Administration Hydralazine HCl 25 mg 12/21/21 12:00 12/21/21 11:58 Hydralazine 25 Mg Tablet PO 25 mg 1200,2100 [facility] Administration Insulin Glargine-yfgn 14 unit 12/18/21 21:00 12/20/21 21:32 Insulin Glargine-Yfgn 300 Unit/3 Ml Pen SUBQ 14 unit QPM [facility] Administration Insulin Human Lispro 5 unit 12/17/21 08:00 12/21/21 07:49 Insulin Lispro 300 Unit/3 Ml Pen SUBQ 5 unit QDBREAKFAST [facility] Administration Protocol Insulin Human Lispro 5 unit 12/16/21 17:00 12/21/21 16:52 Insulin Lispro 300 Unit/3 Ml Pen SUBQ 5 unit QDDINNER [facility] Administration Protocol Insulin Human Lispro 2 - 10 unit 12/16/21 17:00 12/21/21 16:52 Insulin Lispro 300 Unit/3 Ml Pen SUBQ Not Given 0800,1200,1700,2100 [facility] Protocol Lisinopril 40 mg 12/17/21 09:00 12/21/21 07:48 Lisinopril 20 Mg Tablet PO 40 mg DAILY [facility] Administration Multi-Ingredient Ointment 1 applic 12/17/21 12:52 12/19/21 13:24 Zinc Oxide 20% Oint 30 Gm Tube TOP 1 applic PRN PRN Administration Skin Care Potassium Chloride 40 meq 12/18/21 08:00 12/21/21 16:53 Potassium Chloride 20 Meq Tablet PO 40 meq BIDWM [facility] Administration Sodium Chloride 10 ml 12/16/21 15:38 12/19/21 03:04 Sodium Chloride Flush 0.9% 10 Ml Syringe IVP 30 ml PRN PRN Administration NEEDED PER PROVIDER ORDERS Sodium Chloride 10 ml 12/16/21 17:00 12/21/21 16:53 Sodium Chloride Flush 0.9% 10 Ml Syringe IVP 10 ml 0100,0900,1700 [facility] Administration - Lab Result Fish Bone Diagrams: 12/21/21 05:45 12/21/21 05:45 - Additional Planning My Orders: My Active Orders 12/21/21 12:00 hydrALAZINE [Apresoline] 25 mg PO 1200,2100 12/22/21 09:00 Lactobacillus Rhamnosus GG [Culturelle] 1 cap PO DAILY Subjective - Subjective Patient Reports: Resting Comfortably, No Complaints Nursing Reports: Other (She is working with PT and making slow progress) Objective Vital Signs: Vital Signs - 24 hr 12/21/21 12/21/21 12/21/21 00:00 07:23 07:47 Temperature 36.6 C 36.7 C Heart Rate [ 55 L Brachial] Heart Rate [ 44 L 52 L Radial] Respiratory 12 20 Rate Blood Pressure 184/54 H Blood Pressure 185/49 H 180/62 H [Left Brachial artery] O2 Saturation 95 94 12/21/21 12/21/21 12/21/21 08:17 08:54 13:04 Temperature Heart Rate [ 57 L Brachial] Heart Rate [ 53 L Radial] Respiratory Rate Blood Pressure 155/42 H Blood Pressure 155/42 H 137/59 H [Left Brachial artery] O2 Saturation 12/21/21 15:59 Temperature 37.0 C Heart Rate [ 51 L Brachial] Heart Rate [ Radial] Respiratory 16 Rate Blood Pressure Blood Pressure 179/44 H [Left Brachial artery] O2 Saturation 96 Oxygen O2 Source Room air I&O (Last 24 Hrs): Intake and Output Totals x24h 12/19/21 12/20/21 12/21/21 23:59 23:59 23:59 Intake Total 1610 1330 420 Output Total 1050 2300 1300 Balance 560 -970 -880 General: Alert, Oriented x3 HEENT: Mucous membr. moist/pink Neck: Supple, No JVD Neuro: Alert, Non Focal Cardiovascular: No murmurs Respiratory: No respiratory distress Abdomen: Soft, No tenderness Extremities: No edema, No tenderness/swelling - Results Results: Laboratory Results WBC 6.3 x10^3/uL (4.8-10.8) 12/21/21 05:45 RBC 3.57 10^6/uL (4.20-5.40) L 12/21/21 05:45 Hgb 10.9 g/dL (12.0-16.0) L 12/21/21 05:45 Hct 33.6 % (37.0-47.0) L 12/21/21 05:45 MCV 94.1 fL (81.0-99.0) 12/21/21 05:45 MCH 30.5 pg (27.0-31.0) 12/21/21 05:45 MCHC 32.4 g/dL (32.0-36.0) 12/21/21 05:45 RDW 13.1 % (12.0-15.0) 12/21/21 05:45 Plt Count 235 10^3/uL (130-450) 12/21/21 05:45 MPV 9.1 fL (7.9-10.8) 12/21/21 05:45 Neut # (Auto) Not Reportable 12/21/21 05:45 Lymph # (Auto) Not Reportable 12/21/21 05:45 [place] # (Auto) Not Reportable 12/21/21 05:45 Eos # (Auto) Not Reportable 12/21/21 05:45 Baso # (Auto) Not Reportable 12/21/21 05:45 Absolute Nucleated RBC Not Reportable 12/21/21 05:45 Total Counted 100 12/21/21 05:45 Band Neuts % (Manual) 4 % (0-10) 12/21/21 05:45 Reactive Lymphs % (Man) 3 % 12/21/21 05:45 Abnorm Lymph % (Manual) 0 % 12/21/21 05:45 Nucleated RBC % Not Reportable 12/21/21 05:45 Neutrophils # (Manual) 4.0 10^3/uL (1.5-6.6) 12/21/21 05:45 Lymphocytes # (Manual) 1.6 10^3/uL (1.5-3.5) 12/21/21 05:45 Monocytes # (Manual) 0.4 10^3/uL (0.0-1.0) 12/21/21 05:45 Eosinophils # (Manual) 0.3 10^3/uL (0-0.7) 12/21/21 05:45 Basophils # (Manual) 0.0 10^3/uL (0-0.1) 12/21/21 05:45 Differential Comment MANUAL DIFFERENTIAL 12/21/21 05:45 Platelet Estimate NORMAL (130-450,000) (NORMAL) 12/21/21 05:45 Platelet Morphology NORMAL APPEARANCE (NORMAL) 12/21/21 05:45 RBC Morph Micro Appear 1+ ANISOCYTOSIS (NORMAL) 12/21/21 05:45 Sodium 135 mmol/L (135-145) 12/21/21 05:45 Potassium 4.3 mmol/L (3.5-5.0) 12/21/21 05:45 Chloride 105 mmol/L (101-111) 12/21/21 05:45 Carbon Dioxide 25 mmol/L (21-32) 12/21/21 05:45 Anion Gap 5.0 (6-13) L 12/21/21 05:45 BUN 12 mg/dL (6-20) 12/21/21 05:45 Creatinine 0.6 mg/dL (0.4-1.0) 12/21/21 05:45 Estimated GFR (MDRD) 96 (>89) 12/21/21 05:45 Glucose 167 mg/dL (70-100) H 12/21/21 05:45 POC Whole Bld Glucose 136 mg/dL (70 - 100) H 12/21/21 16:38 Estimat Average Glucose 169 mg/dL (70-100) H 12/17/21 05:59 Hemoglobin A1c % 7.5 % (4.27-6.07) H 12/17/21 05:59 Lactic Acid 1.0 mmol/L (0.5-2.2) 12/16/21 16:27 Calcium 8.7 mg/dL (8.5-10.3) 12/21/21 05:45 Total Bilirubin 0.4 mg/dL (0.2-1.0) 12/16/21 13:16 AST 19 IU/L (10-42) 12/16/21 13:16 ALT 12 IU/L (10-60) 12/16/21 13:16 Alkaline Phosphatase 59 IU/L (42-121) 12/16/21 13:16 Total Protein 6.7 g/dL (6.7-8.2) 12/16/21 13:16 Albumin 3.3 g/dL (3.2-5.5) 12/16/21 13:16 Globulin 3.4 g/dL (2.1-4.2) 12/16/21 13:16 Albumin/Globulin Ratio 1.0 (1.0-2.2) 12/16/21 13:16 Urine Color YELLOW 12/16/21 21:00 Urine Clarity HAZY (CLEAR) 12/16/21 21:00 Urine pH 6.0 PH (5.0-7.5) 12/16/21 21:00 Ur Specific [place] 1.015 (1.002-1.030) 12/16/21 21:00 Urine Protein TRACE mg/dL (NEGATIVE) 12/16/21 21:00 Urine Glucose (UA) NEGATIVE mg/dL (NEGATIVE) 12/16/21 21:00 Urine Ketones TRACE mg/dL (NEGATIVE) 12/16/21 21:00 Urine Occult Blood SMALL (NEGATIVE) H 12/16/21 21:00 Urine Nitrite NEGATIVE (NEGATIVE) 12/16/21 21:00 Urine Bilirubin NEGATIVE (NEGATIVE) 12/16/21 21:00 Urine Urobilinogen 0.2 (NORMAL) E.U./dL (NORMAL) 12/16/21 21:00 Ur Leukocyte Esterase SMALL (NEGATIVE) H 12/16/21 21:00 Urine RBC 6-10 /HPF (0-5) H 12/16/21 21:00 Urine WBC >25 /HPF (0-5) H 12/16/21 21:00 Ur Squamous Epith Cells RARE Squamous (<= Few) 12/16/21 21:00 Urine Bacteria Rare /HPF (None Seen) 12/16/21 21:00 Urine Culture Comments INDICATED 12/16/21 21:00 SARS-CoV-2 (PCR) NOT DETECTED 12/21/21 12:20
[2021-12-21] MEDS: INSULIN GLARGINE-YFGN 300 UNIT/3 ML PEN SUBQ SCH (22:04)
[2021-12-22] MEDS: SODIUM CHLORIDE FLUSH 0.9% 10 ML SYRINGE IVP SCH ×2 (01:24→08:49)
[2021-12-22] MEDS: INSULIN LISPRO 300 UNIT/3 ML PEN SUBQ SCH ×2 (08:00→08:01)
[2021-12-22] MEDS: POTASSIUM CHLORIDE 20 MEQ TABLET PO SCH (08:16)
[2021-12-22 08:48] VITALS: BP 180/70
[2021-12-22] MEDS: APIXABAN 5 MG TABLET PO SCH (08:49)
[2021-12-22] MEDS: CIPROFLOXACIN 250 MG TABLET PO SCH (08:49)
[2021-12-22] MEDS: lisinopriL 20 MG TABLET PO SCH (08:49)
[2021-12-22] MEDS: amLODIPine 5 MG TABLET PO SCH (08:49)
[2021-12-22] MEDS ORDERED: LACTOBACILLUS RHAMNOSUS GG CAPSULE PO SCH (09:00)
--- NOTE | 2021-12-22 09:16 | Discharge Plan ---
"Discharge Plan for SNF / [facility]IT[facility] - Discharge Plan And Transition Orders Problem Reviewed?: Yes Disposition: 03 SNF DC/Xfer Condition: Stable Allergies and Adverse Reactions: Allergies Allergy/AdvReac Type Severity Reaction Status Date / Time No Known Drug Allergies Allergy Verified 12/15/21 07:38 Health Concerns: Patient was hospitalized to treat E. coli UTI which caused an E. coli bacteremia. She is a diabetic. She has become deconditioned and now needs PT and OT rehab at SNF. Plan of Treatment: As above. Care Goals: Improvement in symptoms and stabilization are the goals. Assessment: The patient understands and is agreeable with the plan. 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 No intervention at this hospital. She will need outpatient follow-up (6) Contusion of left knee As well as contusion of the right knee due to her sliding to the ground before admission. Films were negative. Skin is intact except for small abrasions. (7) Adjustment reaction with anxiety and depression Medicare Certification Statement: I certify that [facility] care is medically necessary on a continuing basis for any of the conditions for which she/he is receiving care during hospitalization. Notify PCP of admission and forward orders to primary provider for signature. Weight on admission and: Monthly Call PCP immediately if weight increases by: 5 kg Other Notification Orders: Call PCP immediately if patient develops dyspnea, chest pain/tightness or edema. House Bowel Program: Yes Additional Bowel Program Orders: If no BM after 2 days, nurse may give M.O.M. 30ml PO PRN and/or ducolax Supp 1 MO and/or BERTIN 250mg P.O., and/or senna 1-2 tabs PO. On day 3 nurse may give repeat above order until residents constipation is resolved. Annual Influenza Vaccine (between Oct 06 and May 05): Yes Two-step PPD per [facility] [phone] or approved exception documents: Yes Treatments & Other Orders: Daily PT and OT Medication Orders: PLEASE REFER TO THE DISCHARGE MEDICATION LIST. Insulin Orders?: Yes - Medications New Prescriptions: hydrALAZINE [Apresoline] 25 mg PO 1200,2100 #60 tab Ciprofloxacin [Cipro] 500 mg PO BID #2 tab Insulin Lispro [Humalog Kwikpen U-100] 5 unit SUBQ QDDINNER #1 ea Insulin Lispro [Humalog Kwikpen U-100] 2 - 10 unit SUBQ 0800,1200,1700,2100 #1 ea Insulin Lispro [Humalog Kwikpen U-100] 5 unit SUBQ QDBREAKFAST #1 ea Potassium Chloride [K-Dur] 40 meq PO DAILY #30 tab amLODIPine [Norvasc] 10 mg PO DAILY #30 tab Insulin Glargine,Hum.rec.anlog [Toucorona Vasquezalbertar] 14 unit SUBQ QPM #1 each - Diet Type: Geriatric (Diabetic diet) Texture: Regular Liquids: Thin May have monthly special meal: Yes - Therapies | Activity Therapy: Evaluation | Treat if indicated: PT, OT Rehabilitation Potential: Maximize functional status Activity: Activity as Tolerated Weight Bearing: Full Weight Assistance Devices: Walker Follow Up: See PCP after Dch from [facility]. Insulin Orders - [facility] Basal | Correction | Custom Orders: Diagnosis: Diabetes Initiate hypo and hyperglycemia protocols for BG <70 and BG >375. May check BG PRN for signs/symptoms of dysglycemia. Frequency of BG checks: [AC & HS] Correction Insulin: - Select the type of insulin below Humalog 100 units /ml insulin inject subq per orders indicate below [] LOW DOSE [X] MODERATE DOSE [] MODERATE/HIGH DOSE [] HIGH DOSE GB UNITS GB UNITS GB UNITS GB UNITS 61-140 0 UNITS 61-140 0 UNITS 61-140 0 UNITS 61-140 0 UNITS 141-175 1 UNITS 141-175 1 UNITS 141-175 2 UNITS 141-175 3 UNITS 176-225 2 UNITS 176-225 3 UNITS 176-225 4 UNITS 176-225 5 UNITS 226-275 3 UNITS 226-275 5 UNITS 226-275 6 UNITS 226-275 7 UNITS 276-325 4 UNITS 276-325 7 UNITS 276-325 8 UNITS 276-325 9 UNITS 326-375 5 UNITS 326-375 9 UNITS 326-375 10 UNITS 326-375 11 UNITS >375 CONTACT MD >375 CONTACT MD >375 CONTACT MD >375 CONTACT MD"
--- NOTE | 2021-12-22 09:26 | DISCHARGE SUMMARY ---
Discharge Summary Admit Date: 12/16/21 Discharge Date: 12/22/21 Discharging Provider: Roseline Espinosa MD Primary Care Provider: Mahendra Gallegos NP Condition at Discharge: Stable Discharge Disposition: SNF DC/Xfer - HPI History of Present Illness: This patient presented to the emergency room on December 15 complaining of generalized weakness for 24 hours. She ambulates with a walker and had sat down for her coffee the morning before. When she tried to get up to go back into the house, she almost did not make it because of fatigue. She got back in the house and spent the rest of the day and night in a recliner because of the fatigue. Then EMS was called December 15 and she was seen for the weakness. She was diagnosed as having a UTI. She was sent home with Keflex. Blood cultures turned positive overnight. She is growing E. coli. ER tried to call her for follow-up but they could not get a hold of her. EMS eventually brought her in and they found out that she had an episode of weakness at home and she kind of crumpled to the ground and landed on her knees and then her tailbone. There is no syncope. No chest pain, palpitations, shortness of breath. She just sort of lost her strength to be able to stand. In the emergency room on the she was hypertensive between 165 and 197 systolic. In the emergency room today blood pressure was 182/45. Temperature was 37.6. Heart rate was 59. She is breathing normally at 15-20 and she is 98% on room air. She is a fatigued appearing elderly female and in no respiratory distress. She was alert and oriented. Clear lungs. Her knees were tender where she had fallen on them. Abdomen was soft, normal bowel sounds. White cell count was 6000. Hemoglobin 10.8. Lactic acid was now 2.4 whereas 1.8 yesterday. She had imaging done in the emergency room and it showed iliac aneurysms but no fractures. When they try to get her up to send her home, she was too weak to walk unassisted. Which is new for her. So I been asked to place her in observation for the E. coli bacteremia. We are hoping that an overnight stay with IV fluids and antibiotics will improve her overall strength for her to be discharged. On review of systems she wears glasses, had a cataract removed. So she sees okay. Has had some mild to moderate hearing loss. But no problems with dysphagia, dysarthria. She has had mini strokes, and sometimes is affected her balance and her endurance. She denies coughing and wheezing in spite of the fact that she is a smoker since the age of 14. She is on blood thinners for her history of TIAs and strokes. She does not recall if she was ever told that she had a heart attack, or atrial fibrillation. She does not have edema, palpitations, and overall cardiovascular endurance is reduced because "I am out of shape and I am old". She said the last time she did really well was a few years ago when she did rehab after her stroke. That was the most strong she had ever been. She denies indigestion, abdominal pain, change in bowel habits. No blood in her stool. She is occasionally incontinent of urine if she coughs or sneeze. Has never been . Musculoskeletal aches and pains definitely slow her down. She uses a walker. She is slow down enough that she lives with the family. She moved from [facility] to here a year ago. It is a family that she knew for a while and they talked her into coming here and that they would take care of her. She has a caregiver that comes for 5 times a week several hours a day. She is incontinent of urine and message her close. She warned her new family that this was problems for her and they all told her that "we can handle it come live with this". She has been very unhappy. Its been made clear to her that they resent the amount of work she presents to them. She is very sad, lonely, depressed. More than anything she is very lonely. She is very unhappy here and thinks she has made a big mistake moving to the [place] and wishes that she just stayed in [facility] and had moved to an assisted living facility after selling her house. She has not had a fall in a long time. But she does lose her balance. Memory loss is mild. She still makes her own decisions. She does not have a designated power of employment law attorney right now and she says that it she is going to have to rely in a power of employment law attorney she would like to stay to provide her with a guardian. She has no history of seizures, syncope. She denies polyuria polydipsia polyphagia. [place] primary care provider assigned to her but she is never been able to really get into see her more than once. Trying to get her on the phone or get the office on the phone is impossible. She has been told that she needs to be seen to get the refills of her medication but she says "how can I make an appointment to be seen if they will not even answer their phones". - HOSPITAL COURSE Hospital Course: (1) E coli bacteremia She had a gama-sensitive E coli grow in blood cx. She was treated with iv antibx then transitioned to oral Cipro. There was no recurrence of fever, or new symptoms. A total course of 7 days of treatment was planned. (2) E coli UTI (urinary tract infection) She had a agma-sensitive E coli grow in urine cx. She was treated as in #1. (3) Type 2 diabetes mellitus without complication, with [facility] current use of insulin A1 c was 7.5. She was on long-acting, mealtime and ss Insulin while here. (4) Hypertension She was kept on her usual treatment. 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 No intervention while at this hospital. She will nee d outpatient follow-up (6) Contusion of left knee As well as contusion of the right knee due to her sliding to the ground before admission. Films were negative. Skin is intact except for small abrasions. (7) Adjustment reaction with anxiety and depression She was described being very sad, lonely, depressed. She is very unhappy here and thinks she made a big mistake moving to the [place] and wishes that she just stayed in [facility] and had moved to an assisted living facility. (8) Muscular deconditioning For PT and OT rehab, she is being discharged to SNF. - ALLERGIES Allergies/Adverse Reactions: Allergies Allergy/AdvReac Type Severity Reaction Status Date / Time No Known Drug Allergies Allergy Verified 12/15/21 07:38 - MEDICATIONS Home Medications: Ambulatory Orders Medication Instructions Recorded Confirmed Apixaban [Eliquis] 5 mg ORAL BID 01/13/21 12/16/21 Docusate Sodium [Dulcolax Stool 1 tab ORAL DAILY PRN 01/13/21 12/16/21 Softener] Lisinopril [Zestril] 40 mg ORAL DAILY 01/13/21 12/16/21 Lovastatin 40 mg ORAL DAILY 01/13/21 12/16/21 Ciprofloxacin [Cipro] 500 mg PO BID #2 tab 12/22/21 Insulin Glargine,Hum.rec.anlog 14 unit SUBQ QPM #1 each 12/22/21 [Tosara Moorear] Insulin Lispro [Humalog Kwikpen 2 - 10 unit SUBQ 12/22/21 U-100] 0800,1200,1700,2100 #1 ea Insulin Lispro [Humalog Kwikpen 5 unit SUBQ QDBREAKFAST #1 ea 12/22/21 U-100] Insulin Lispro [Humalog Kwikpen 5 unit SUBQ QDDINNER #1 ea 12/22/21 U-100] Potassium Chloride [K-Dur] 40 meq PO DAILY #30 tab 12/22/21 amLODIPine [Norvasc] 10 mg PO DAILY #30 tab 12/22/21 hydrALAZINE [Apresoline] 25 mg PO 1200,2100 #60 tab 12/22/21 - PHYSICAL EXAM AT DISCHARGE General Appearance: positive: No acute distress, Alert Eyes Bilateral: positive: Normal inspection, EOMI ENT: positive: ENT inspection nml, No signs of dehydration Neck: positive: Nml inspection, No JVD Respiratory: positive: No respiratory distress, Breath sounds nml Cardiovascular: positive: Regular rate & rhythm, No murmur Abdomen: positive: Non-tender, No distention Skin: positive: Warm, Dry Extremities: positive: Non-tender, No pedal edema Neurologic/Psychiatric: positive: Oriented x3, Motor nml - LABS Result Diagrams: 12/21/21 05:45 12/21/21 05:45 - DIAGNOSTIC IMAGING Diagnostic Imaging Results: Final report reviewed - FOLLOW UP Follow Up: See PCP after discharge from SNF.
== END 2021-12-22 11:58 | DRG 872 ==
LOC: ED 13:02 → MS2 15:38 → OBSVTOIN 12-17 16:12
PROVIDERS: ADMIT Specialist; ATTEND Internal Medicine
DX: A41.51 Sepsis due to Escherichia coli [E. coli] (principal); S30.0XXA Contusion of lower back and pelvis, initial encounter; R78.81 Bacteremia; N39.0 Urinary tract infection, site not specified; M25.559 Pain in unspecified hip; S80.01XA Contusion of right knee, initial encounter; N30.00 Acute cystitis without hematuria; S80.02XA Contusion of left knee, initial encounter; W19.XXXA Unspecified fall, initial encounter; I72.3 Aneurysm of iliac artery; H91.90 Unspecified hearing loss, unspecified ear; R32 Unspecified urinary incontinence; B96.20 Unspecified Escherichia coli [E. coli] as the cause of diseases classified elsewhere; E11.9 Type 2 diabetes mellitus without complications; I10 Essential (primary) hypertension; F43.23 Adjustment disorder with mixed anxiety and depressed mood; E78.00 Pure hypercholesterolemia, unspecified; M19.90 Unspecified osteoarthritis, unspecified site; G89.29 Other chronic pain; M54.9 Dorsalgia, unspecified; F17.200 Nicotine dependence, unspecified, uncomplicated; Z20.822 Contact with and (suspected) exposure to COVID-19; Z66 Do not resuscitate; Z68.33 Body mass index [BMI] 33.0-33.9, adult; Z71.3 Dietary counseling and surveillance; Z79.01 Long term (current) use of anticoagulants; Z79.4 Long term (current) use of insulin; Z79.899 Other long term (current) drug therapy; Z86.73 Personal history of transient ischemic attack (TIA), and cerebral infarction without residual deficits; Z90.49 Acquired absence of other specified parts of digestive tract; Z98.49 Cataract extraction status, unspecified eye
CPT/HCPCS: 36415; 72192; 73564; 80048; 80053; 81001; 83036; 83605; 85025; 87040; 87086; 87635; 96361; 96365; 96366; 96375; 97161; 97165; 97530; 99285; A9270

== ENCOUNTER 2021-12-25 08:00 | Outpatient (CLI) | payer MEDICARE, MEDICAID ==
[2021-12-25 21:07] LABS: CALCIUM 9.2 mg/dL (8.5-10.3); CREATININE 0.9 mg/dL (0.4-1.0)
== END 2021-12-25 23:59 | disposition home or self-care (01) ==
LOC: LAB.R 08:00
PROVIDERS: ATTEND Internal Medicine
DX: E11.9 Type 2 diabetes mellitus without complications (principal)
CPT/HCPCS: 80048

== ENCOUNTER 2022-01-12 08:00 | Outpatient (CLI) | payer MEDICARE, MEDICAID ==
[2022-01-12 18:12] LABS: B. PARAPERTUSSIS- RESP PCR PAN NOT DETECTED; B. PERTUSSIS- RESP PCR PANEL NOT DETECTED; C. PNEUMONIAE- RESP PCR PANEL NOT DETECTED; CORONAVIRUS 229E-RESP PCR NOT DETECTED; CORONAVIRUS HKU1-RESP PCR NOT DETECTED; CORONAVIRUS NL63-RESP PCR NOT DETECTED; CORONAVIRUS OC43-RESP PCR NOT DETECTED; HUMAN METAPNEUMOVIRUS NOT DETECTED; INFLUENZA A- RESP PCR PANEL NOT DETECTED; INFLUENZA B - RESP PCR PANEL NOT DETECTED; M. PNEUMONIAE- RESP PCR PANEL NOT DETECTED; PARAINFLUENZA VIRUS 1 NOT DETECTED; PARAINFLUENZA VIRUS 2 NOT DETECTED; PARAINFLUENZA VIRUS 3 NOT DETECTED; PARAINFLUENZA VIRUS 4 NOT DETECTED; RHINOVIRUS/ENTEROVIRUS NOT DETECTED; RSV- RESP PCR PANEL DETECTED; SARS-CoV-2 -RESP PCR PANEL NOT DETECTED
== END 2022-01-12 23:59 | disposition home or self-care (01) ==
LOC: LAB.R 08:00
PROVIDERS: ATTEND Internal Medicine
DX: J44.9 Chronic obstructive pulmonary disease, unspecified (principal); Z20.822 Contact with and (suspected) exposure to COVID-19; Z13.83 Encounter for screening for respiratory disorder NEC
CPT/HCPCS: 87633

== ENCOUNTER 2022-03-16 13:15 | Outpatient (CLI) | payer MEDICARE, MEDICAID ==
[2022-03-16 13:38] LABS: BASOPHILS # (AUTO) 0.1 10^3/uL (0.0-0.1); BASOPHILS % (AUTO) 0.9 %; EOSINOPHILS # (AUTO) 0.2 10^3/uL (0.0-0.7); EOSINOPHILS % (AUTO) 2.3 %; HCT - HEMATOCRIT 36.3 % (37.0-47.0); HGB - HEMOGLOBIN 11.3 g/dL (12.0-16.0); LYMPHOCYTES # (AUTO) 2.3 10^3/uL (1.5-3.5); LYMPHOCYTES % (AUTO) 30.9 %; MEAN CORPUSCULAR HEMOGLOBIN 29.8 pg (27.0-31.0); MEAN CORPUSCULAR HGB CONC 31.1 g/dL (32.0-36.0); MEAN CORPUSCULAR VOLUME 95.8 fL (81.0-99.0); MEAN PLATELET VOLUME 9.7 fL (7.9-10.8); MONOCYTES # (AUTO) 0.4 10^3/uL (0.0-1.0); MONOCYTES % (AUTO) 5.6 %; NEUTROPHILS # (AUTO) 4.5 10^3/uL (1.5-6.6); PLT - PLATELET COUNT 244 10^3/uL (130-450); RED BLOOD COUNT 3.79 10^6/uL (4.20-5.40); RED CELL DISTRIBUTION WIDTH 14.2 % (12.0-15.0); WHITE BLOOD COUNT 7.5 x10^3/uL (4.8-10.8)
[2022-03-16 14:00] LABS: ALBUMIN 3.7 g/dL (3.2-5.5); BILIRUBIN,TOTAL 0.5 mg/dL (0.2-1.0); CALCIUM 9.4 mg/dL (8.5-10.3); CREATININE 0.6 mg/dL (0.4-1.0); ESTIMATED AVERAGE GLUCOSE 180 mg/dL (70-100); HEMOGLOBIN A1c% 7.9 % (4.27-6.07); POTASSIUM 4.3 mmol/L (3.5-5.0); TOTAL PROTEIN 7.4 g/dL (6.7-8.2)
[2022-03-16 15:25] LABS: CREATININE,URINE 72.2 mg/dL; MICROALBUM/CREATININE RATIO,UR 220.2 ug/mg (<30.0); MICROALBUMIN,URINE 15.9 mg/dL (0-300.0)
== END 2022-03-16 13:16 | disposition home or self-care (01) ==
LOC: LAB 13:15
PROVIDERS: ATTEND Nurse Practitioner
DX: E11.9 Type 2 diabetes mellitus without complications (principal); L03.90 Cellulitis, unspecified
CPT/HCPCS: 36415; 80053; 82043; 82570; 83036; 85025

== ENCOUNTER 2022-04-04 11:20 | Emergency (ER) | payer MEDICARE, MEDICAID ==
--- NOTE | 2022-04-04 11:37 | ED Physician Documentation ---
PD HPI FOCAL NEURO - Stated complaint Stated Complaint: GENERAL WEAKNESS - Chief complaint Chief Complaint: General - History obtained from History obtained from: Patient, Friend, EMS - Additional information Additional information: This is an 82-year-old woman with history of atrial fibrillation, presumed PFO when she is describing "a hole in her heart," that she has not wanted to have it fixed and a remote stroke who presents by ambulance for her symptoms starting about 4 days ago. She states that starting when she woke up last Sunday morning she felt wobbly and like she was leaning to the left. Is associated with numbness in both knees that is symmetric. It is associate with increased urinary frequency, noting that she is always incontinent. 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: Other - Present Medications Home Medications: Ambulatory Orders Medication Instructions Recorded Confirmed Apixaban [Eliquis] 5 mg ORAL BID 01/13/21 04/04/22 Docusate Sodium [Dulcolax Stool 1 tab ORAL DAILY PRN 01/13/21 04/04/22 Softener] Lisinopril [Zestril] 40 mg ORAL DAILY 01/13/21 04/04/22 Lovastatin 40 mg ORAL DAILY 01/13/21 04/04/22 Insulin Glargine,Hum.rec.anlog 14 unit SUBQ QPM #1 each 12/22/21 04/04/22 [Yani Resendez] Insulin Lispro [Humalog Kwikpen 2 - 10 unit SUBQ 12/22/21 04/04/22 U-100] 0800,1200,1700,2100 #1 ea Insulin Lispro [Humalog Kwikpen 5 unit SUBQ QDBREAKFAST #1 ea 12/22/21 04/04/22 U-100] Insulin Lispro [Humalog Kwikpen 5 unit SUBQ QDDINNER #1 ea 12/22/21 04/04/22 U-100] Physical Therapy 1 unit TD ONCE #1 04/04/22 amLODIPine [Norvasc] 5 mg PO DAILY 04/04/22 04/04/22 - Allergies Allergies/Adverse Reactions: Allergies Allergy/AdvReac Type Severity Reaction Status Date / Time No Known Drug Allergies Allergy Verified 04/04/22 11:28 - Social History Does the pt smoke?: No Smoking Status: Never smoker - POLST Patient has POLST: No POLST Status: DNR PD ED PE NORMAL - Vitals Vital signs reviewed: Yes - General General: Alert and oriented X 3, No acute distress - HEENT HEENT: PERRL, EOMI - Neck Neck: Supple, no meningeal sign, No bony TTP - Cardiac Cardiac: RRR (Systolic murmur heard best at the upper sternal borders) - Respiratory Respiratory: No respiratory distress, Clear bilaterally - Abdomen Abdomen: Non tender - Derm Derm: Normal color, Warm and dry - Extremities Extremities: No edema, No calf tenderness / cord, Other (With venous stasis changes) - Neuro Neuro: Alert and oriented X 3, No motor deficit, No sensory deficit, Normal speech Eye Opening: Spontaneous Motor: Obeys Commands Verbal: Oriented GCS Score: 15 - Psych Psych: Normal mood, Normal affect NIHSS - Time Time: 11:30 - Level of Consciousness Level of consciousness: (0) Alert, Keenly responsive LOC Questions: (0) Answers both Q's correct LOC Commands: (0) Performs both correctly - Gaze Best Gaze: (0) Normal - Visual Visual: (0) No loss - Facial Palsy Facial Palsy: (0) Normal, symmetrical movement - Motor Arms (both separate) Motor Arm (right): (0) No drift Motor Arm (left): (0) No drift - Motor Legs (both separate) Motor Leg (right): (0) No drift Motor Leg (left): (0) No drift - Limb Ataxia Limb Ataxia: (0) Absent - Sensory Sensory: (0) Normal - Best Language Best Language: (0) No aphasia - Dysarthria Dysarthria: (0) Normal - Extinction and Inattention (formally neg Extinction and inattention: (0) No abnormality - Total Score/Results Total Score/Result: 0 Results - Vitals Vitals: Vital Signs - 24 hr 04/04/22 04/04/22 04/04/22 11:28 12:41 15:20 Temperature 36.9 C Heart Rate 51 L 49 L 47 L Respiratory 18 16 16 Rate Blood Pressure 158/58 H 186/64 H O2 Saturation 100 97 97 04/04/22 04/04/22 15:58 17:52 Temperature Heart Rate 51 L 50 L Respiratory 17 20 Rate Blood Pressure 179/63 H 165/58 H O2 Saturation 98 95 Oxygen O2 Source Room air - EKG (time done) 1204 Rate: Rate (enter#) (46) Rhythm: Sinus bradycardia (w pvc) [place]: Normal Intervals: Normal OR QRS: LVH Ischemia: No: ST elevation c/w ischemia, ST depression - Labs Labs: Laboratory Tests 04/04/22 04/04/22 04/04/22 11:42 11:42 12:40 WBC 8.6 RBC 4.00 L Hgb 11.9 L Hct 37.2 MCV 93.0 MCH 29.8 MCHC 32.0 RDW 13.8 Plt Count 237 MPV 9.2 Neut # (Auto) 5.1 Lymph # (Auto) 2.7 [place] # (Auto) 0.6 Eos # (Auto) 0.1 Baso # (Auto) 0.1 Absolute Nucleated RBC 0.00 Nucleated RBC % 0.0 Sodium 138 Potassium 3.3 L Chloride 102 Carbon Dioxide 25 Anion Gap 11.0 BUN 24 H Creatinine 1.0 Estimated GFR (MDRD) 53 L Glucose 218 H Calcium 9.3 Magnesium 1.7 Total Bilirubin 0.3 AST 17 ALT 11 Alkaline Phosphatase 57 Total Protein 7.4 Albumin 3.7 Globulin 3.7 Albumin/Globulin Ratio 1.0 Lipase 22 Urine Color YELLOW Urine Clarity CLEAR Urine pH 5.5 Ur Specific [place] 1.020 Urine Protein NEGATIVE Urine Glucose (UA) NEGATIVE Urine Ketones NEGATIVE Urine Occult Blood NEGATIVE Urine Nitrite NEGATIVE Urine Bilirubin NEGATIVE Urine Urobilinogen 0.2 (NORMAL) Ur Leukocyte Esterase NEGATIVE Ur Microscopic Review NOT INDICATED Urine Culture Comments NOT INDICATED - Rads (name of study) CT of the head without contrast is unremarkable Radiology: Final report received, EMP read indepedently MRI of the brain showing age-related volume loss and chronic small vessel ischemic change without acute finding. Radiology: Final report received, EMP read indepedently PD Medical Decision Making - ED course ED course: 82-year-old woman presents with generalized weakness for last 3 to 4 days and feeling like she is veering to the left. Her neurologic exam is normal. CBC notable for very mild anemia. CMP notable for modest hypokalemia and hyperglycemia. Urinalysis reviewed and negative. CT of the head was unremarkable. She had persistent symptoms so an MRI will be ordered. Potassium was repleted orally. She is at high risk for stroke given her A-fib and PFO despite anticoagulation. She is noted to be bradycardic here, but that looks like a chronic phenomenon looking at old charts, she is always bradycardic in the same range. Patient agrees that she has chronic bradycardia. MRI of the brain was without pertinent positive findings. On further evaluation she has had some low back pain and we think the issues she is having may be due to left leg numbness. She certainly could have sciatica and we considered starting her on steroids but she is diabetic so these were held. Her primary care physician is out of town so I will write an order for physical therapy. She was able to walk with a walker here but she was worried about her stability at home. I had a long talk with her and her friend. I did offer for her to board in the emergency department pending SNF placement tomorrow which she declined. Departure - Departure Disposition: Home, Self Care Clinical Impression: Disequilibrium, Generalized weakness Condition: Stable Record reviewed to determine appropriate education?: Yes Instructions: ED Dizziness UKO Prescriptions: Physical Therapy 1 unit TD ONCE #1 Comments: No evidence of stroke or other severe findings on your MRI or CT of the brain. The MRI is very sensitive for stroke. Call your doctor to arrange a follow-up appointment, make the next available appointment. In the interim, return anytime if worse or if new symptoms develop. Given that your primary care physician is out of town I have written an order for physical therapy but still important to follow-up. [facility] non emergency line for list assist is [phone]
[2022-04-04 11:47] LABS: BASOPHILS # (AUTO) 0.1 10^3/uL (0.0-0.1); BASOPHILS % (AUTO) 0.9 %; EOSINOPHILS # (AUTO) 0.1 10^3/uL (0.0-0.7); EOSINOPHILS % (AUTO) 1.6 %; HCT - HEMATOCRIT 37.2 % (37.0-47.0); HGB - HEMOGLOBIN 11.9 g/dL (12.0-16.0); LYMPHOCYTES # (AUTO) 2.7 10^3/uL (1.5-3.5); LYMPHOCYTES % (AUTO) 31.2 %; MEAN CORPUSCULAR HEMOGLOBIN 29.8 pg (27.0-31.0); MEAN PLATELET VOLUME 9.2 fL (7.9-10.8); MONOCYTES # (AUTO) 0.6 10^3/uL (0.0-1.0); MONOCYTES % (AUTO) 6.7 %; NEUTROPHILS # (AUTO) 5.1 10^3/uL (1.5-6.6); NEUTROPHILS % (AUTO) 59.3 %; PLT - PLATELET COUNT 237 10^3/uL (130-450); RED CELL DISTRIBUTION WIDTH 13.8 % (12.0-15.0); WHITE BLOOD COUNT 8.6 x10^3/uL (4.8-10.8)
[2022-04-04 11:59] LABS: ALBUMIN 3.7 g/dL (3.2-5.5); BILIRUBIN,TOTAL 0.3 mg/dL (0.2-1.0); CALCIUM 9.3 mg/dL (8.5-10.3); MAGNESIUM 1.7 mg/dL (1.7-2.8); POTASSIUM 3.3 mmol/L (3.5-5.0); TOTAL PROTEIN 7.4 g/dL (6.7-8.2)
--- NOTE | 2022-04-04 12:12 | CT Report ---
PROCEDURE: HEAD WO INDICATIONS: dysequilibrium TECHNIQUE: Noncontrast 4.5 mm thick angled axial sections acquired from the foramen magnum to the vertex. For r adiation dose reduction, the following was used: automated exposure control, adjustment of mA and/or kV according to patient size. COMPARISON: 12/15/2021 FINDINGS: Image quality: Excellent. CSF spaces: Basal cisterns are patent. No extra-axial fluid collections. The ventricles are symmet aries in size and shape. Brain: Old infarction in left cerebellum is again seen with encephalomalacia. No intracranial bleeds or masses. There is cerebral volume loss for age, with resultant ventricular and sulcal prominence. There are periventricular and deep white matter chronic small vessel ischemic changes. There is in tracranial internal carotid artery atherosclerosis. Skull and face: Calvarium and visualized facial bones appear intact, without suspicious lesions. Sinuses: Visualized sinuses and mastoids are clear. IMPRESSION: 1. No CT evidence of acute intracranial abnormalities. No significant changes from previous study. Reviewed by: Mike Muñiz MD on 04/04/2022 12:11 PM PST Approved by: Mike Muñiz MD on 04/04/2022 12:11 PM PST Station ID: [id number]
[2022-04-04] MEDS ORDERED: POTASSIUM CHLORIDE 20 MEQ TABLET PO STA (12:38)
[2022-04-04 12:48] LABS: BILIRUBIN,URINE NEGATIVE (NEGATIVE); GLUCOSE, URINE (UA) NEGATIVE (NEGATIVE); KETONES,URINE (UA) NEGATIVE (NEGATIVE); LEUKOCYTE ESTERASE, URINE NEGATIVE (NEGATIVE); NITRITE,URINE NEGATIVE (NEGATIVE); OCCULT BLOOD,URINE NEGATIVE (NEGATIVE); PH,URINE 5.5 PH (5.0-7.5); PROTEIN,URINE NEGATIVE (NEGATIVE); UROBILINOGEN,URINE 0.2 (NORMAL) E.U./dL (NORMAL)
[2022-04-04 12:50] LABS: CLARITY,URINE CLEAR (CLEAR)
[2022-04-04] MEDS ORDERED: LORazepam 2 MG/ML VIAL IVP STA (16:39)
--- NOTE | 2022-04-04 17:54 | MRI Report ---
PROCEDURE: BRAIN WO INDICATIONS: dysequibrium TECHNIQUE: Noncontrast axial T1 spin echo, axial T2 fast spin echo, sagittal and axial FLAIR, coronal T2 fast sp in echo, axial gradient echo, axial diffusion and ADC through the brain. COMPARISON: CT head from the same day and CT head dated 12/15/2021. FINDINGS: Image quality: Excellent. CSF Spaces: Basal cisterns are patent. No extra-axial fluid collections. Ventricles are normal in size and shape. Brain: Old infarction involving left cerebellum is seen with encephalomalacia. Chronic small vessel disease in bilateral periventricular white matter. Age-related volume loss is also noted. No intracra nial masses or hemorrhage. [place]/white matter interface is normal. Brainstem appears normal. Diffus ion-weighted images demonstrate no acute ischemic insult. No chronic ischemic insults. Normal intra vascular flow voids are present. Skull and face: Calvarium has normal marrow signal. Orbits appear normal. Sinuses: Sinuses and mastoids are clear. IMPRESSION: 1. No evidence of acute infarction. No acute intracranial bleed, midline shift or mass effect. 2. Age-related volume loss and chronic small vessel ischemic changes. Reviewed by: Mike Muñiz MD on 04/04/2022 5:53 PM PST Approved by: Mike Muñiz MD on 04/04/2022 5:53 PM PST Station ID: [id number]
[2022-04-04 19:02] VITALS: BP 175/57
== END 2022-04-04 19:36 | disposition home or self-care (01) ==
LOC: EDUNIT# → ED 11:20
DX: E87.8 Other disorders of electrolyte and fluid balance, not elsewhere classified (principal); R53.1 Weakness; E11.9 Type 2 diabetes mellitus without complications; Z79.4 Long term (current) use of insulin
CPT/HCPCS: 36415; 51701; 70450; 70551; 80053; 81003; 83690; 83735; 85025; 93005; 96374; 99284; A9270; J2060; 81001; 87086

== ENCOUNTER 2022-05-26 13:40 | Outpatient (CLI) | payer MEDICARE, MEDICAID | END 2022-05-26 13:41 | disposition home or self-care (01) | LOC: MAC.MOP 13:40 | PROVIDERS: ATTEND Nurse Practitioner | DX: R00.1 Bradycardia, unspecified (principal) | CPT/HCPCS: 93246 ==

== ENCOUNTER 2022-06-22 10:30 | Outpatient (CLI) | payer MEDICARE, MEDICAID | END 2022-06-22 10:31 | disposition home or self-care (01) | LOC: MAC.MOP 10:30 | PROVIDERS: ATTEND Nurse Practitioner | DX: R00.1 Bradycardia, unspecified (principal); I44.0 Atrioventricular block, first degree; I47.1 Supraventricular tachycardia; I47.20 Ventricular tachycardia, unspecified | CPT/HCPCS: 93248 ==

== ENCOUNTER 2022-06-22 12:30 | Outpatient (CLI) | payer MEDICARE, MEDICAID | END 2022-06-22 12:31 | disposition home or self-care (01) | LOC: DI 12:30 | PROVIDERS: ATTEND Nurse Practitioner | DX: I08.0 Rheumatic disorders of both mitral and aortic valves (principal); R01.1 Cardiac murmur, unspecified | CPT/HCPCS: 93306 ==

== ENCOUNTER 2022-09-05 10:43 | Outpatient (CLI) | payer MEDICARE, MEDICAID ==
[2022-09-05 12:21] LABS: ESTIMATED AVERAGE GLUCOSE 177 mg/dL (70-100); HEMOGLOBIN A1c% 7.8 % (4.27-6.07)
== END 2022-09-05 10:44 | disposition home or self-care (01) ==
LOC: LAB 10:43
PROVIDERS: ATTEND Nurse Practitioner
DX: E11.9 Type 2 diabetes mellitus without complications (principal)
CPT/HCPCS: 36415; 83036

== ENCOUNTER 2023-01-22 14:22 | Outpatient (CLI) | payer MEDICARE, MEDICAID ==
[2023-01-22 14:48] LABS: ALBUMIN 3.8 g/dL (3.2-5.5); ALKALINE PHOSPHATASE 68 IU/L (42-121); ALT ALANINE AMINOTRANSFERASE 7 IU/L (10-60); AST ASPARTATE AMINOTRANSFERASE 9 IU/L (10-42); BILIRUBIN,TOTAL 0.4 mg/dL (0.2-1.0); BUN - BLOOD UREA NITROGEN 20 mg/dL (6-20); CALCIUM 9.7 mg/dL (8.5-10.3); CARBON DIOXIDE - CO2 30 mmol/L (21-32); CHLORIDE 107 mmol/L (101-111); CHOL/HDL RATIO 3.9 (<4.4); CHOLESTEROL 172 mg/dL; CREATININE 0.9 mg/dL (0.6-1.3); GFR - MDRD 60 (>89); GLUCOSE 174 mg/dL (74-104); HDL CHOLESTEROL 44 mg/dL; LDL CHOLESTEROL,CALCULATED 104 mg/dL; LDL/HDL RATIO 2.4 (<4.4); POTASSIUM 3.7 mmol/L (3.5-4.5); SODIUM 142 mmol/L (135-145); TOTAL PROTEIN 7.7 g/dL (6.4-8.9); TRIGLYCERIDES 118 mg/dL (48-352); VLDL CHOLESTEROL 24 mg/dL
[2023-01-22 18:13] LABS: ESTIMATED AVERAGE GLUCOSE 163 mg/dL (70-100); HEMOGLOBIN A1c% 7.3 % (4.27-6.07)
== END 2023-01-22 14:23 | disposition home or self-care (01) ==
LOC: LAB 14:22
PROVIDERS: ATTEND Nurse Practitioner
DX: E11.65 Type 2 diabetes mellitus with hyperglycemia (principal); E11.22 Type 2 diabetes mellitus with diabetic chronic kidney disease; E11.40 Type 2 diabetes mellitus with diabetic neuropathy, unspecified; E78.5 Hyperlipidemia, unspecified
CPT/HCPCS: 36415; 80053; 80061; 83036; 83721

== ENCOUNTER 2023-02-20 11:18 | Outpatient (CLI) | payer MEDICARE, MEDICAID | END 2023-02-20 23:59 | disposition EMS.NT | LOC: EMS 11:18 | DX: R53.1 Weakness (principal) ==

== ENCOUNTER 2023-05-25 10:04 | Outpatient (CLI) | payer MEDICARE, MEDICAID ==
[2023-05-25 10:24] LABS: BASOPHILS # (AUTO) 0.1 10^3/uL (0.0-0.1); BASOPHILS % (AUTO) 1.2 %; EOSINOPHILS # (AUTO) 0.2 10^3/uL (0.0-0.7); EOSINOPHILS % (AUTO) 2.8 %; HCT - HEMATOCRIT 39.4 % (37.0-47.0); LYMPHOCYTES # (AUTO) 1.9 10^3/uL (1.5-3.5); LYMPHOCYTES % (AUTO) 24.2 %; MEAN CORPUSCULAR HEMOGLOBIN 28.8 pg (27.0-31.0); MEAN CORPUSCULAR HGB CONC 30.5 g/dL (32.0-36.0); MEAN CORPUSCULAR VOLUME 94.5 fL (81.0-99.0); MEAN PLATELET VOLUME 10.6 fL (7.9-10.8); MONOCYTES # (AUTO) 0.4 10^3/uL (0.0-1.0); MONOCYTES % (AUTO) 5.3 %; NEUTROPHILS # (AUTO) 5.2 10^3/uL (1.5-6.6); NEUTROPHILS % (AUTO) 66.2 %; PLT - PLATELET COUNT 213 10^3/uL (130-450); RED BLOOD COUNT 4.17 10^6/uL (4.20-5.40); RED CELL DISTRIBUTION WIDTH 14.5 % (12.0-15.0); WHITE BLOOD COUNT 7.8 x10^3/uL (4.8-10.8)
[2023-05-25 10:36] LABS: ALBUMIN 3.8 g/dL (3.2-5.5); ALBUMIN/GLOBULIN RATIO 1.1 (1.0-2.2); ALKALINE PHOSPHATASE 66 IU/L (42-121); ALT ALANINE AMINOTRANSFERASE 6 IU/L (10-60); AST ASPARTATE AMINOTRANSFERASE 12 IU/L (10-42); BILIRUBIN,TOTAL 0.3 mg/dL (0.2-1.0); BUN - BLOOD UREA NITROGEN 22 mg/dL (6-20); CALCIUM 9.6 mg/dL (8.5-10.3); CARBON DIOXIDE - CO2 27 mmol/L (21-32); CHLORIDE 107 mmol/L (101-111); CHOLESTEROL 154 mg/dL; CREATININE 0.7 mg/dL (0.6-1.3); GFR - MDRD 80 (>89); GLUCOSE 135 mg/dL (74-104); HDL CHOLESTEROL 52 mg/dL; LDL CHOLESTEROL,CALCULATED 87 mg/dL; LDL/HDL RATIO 1.7 (<4.4); SODIUM 138 mmol/L (135-145); TOTAL PROTEIN 7.3 g/dL (6.4-8.9); TRIGLYCERIDES 73 mg/dL (48-352); VLDL CHOLESTEROL 15 mg/dL
[2023-05-25 10:51] LABS: THYROID STIMULATING HORMONE 1.77 uIU/mL (0.34-5.60)
[2023-05-25 12:11] LABS: ESTIMATED AVERAGE GLUCOSE 143 mg/dL (70-100); HEMOGLOBIN A1c% 6.6 % (4.27-6.07)
== END 2023-05-25 10:05 | disposition home or self-care (01) ==
LOC: LAB 10:04
PROVIDERS: ATTEND Nurse Practitioner
DX: E11.40 Type 2 diabetes mellitus with diabetic neuropathy, unspecified (principal); E78.5 Hyperlipidemia, unspecified
CPT/HCPCS: 36415; 80053; 80061; 82043; 82570; 83036; 83721; 84443; 85025

== ENCOUNTER 2023-07-23 15:39 | Outpatient (CLI) | payer MEDICARE, MEDICAID ==
--- NOTE | 2023-07-23 17:21 | XRAY Report ---
Lumbar Spine 4V HISTORY: 83 years of age, BILATERAL HIP JOINT PAIN TECHNIQUE: Lumbar Spine 4V COMPARISON: None. FINDINGS/IMPRESSION: Mild dextrocurvature of the lower lumbar spine. Extremely limited evaluation of the lateral view give n patient large body habitus. Mild retrolisthesis of L2 on L3. Lateral view is left visualized to the level of L4. Vertebral body height to the level of L4 is well-maintained. Multilevel, moderate degen erative disc disease of the lumbar spine, most pronounced at L3-4. Severe lower lumbar facet arthropa thy. Reviewed by: Opal Johnson MD on 07/23/2023 5:20 PM PDT Approved by: Opal Johnson MD on 07/23/2023 5:20 PM PDT Station ID: [id number]
--- NOTE | 2023-07-23 17:23 | XRAY Report ---
Hips w/Pelvis 2-3V BL HISTORY: 83 years of age, BILATERAL HIP JOINT PAIN TECHNIQUE: Hips w/Pelvis 2-3V BL COMPARISON: None. FINDINGS/IMPRESSION: Mild degenerative changes of bilateral hips. Osteopenia. 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 No acute fracture or dislocation of either hip. Extensive vascular calci fication in the pelvis and bilateral upper thigh. Reviewed by: Opal Johnson MD on 07/23/2023 5:22 PM PDT Approved by: Opal Johnson MD on 07/23/2023 5:22 PM PDT Station ID: [id number]
== END 2023-07-23 15:40 | disposition home or self-care (01) ==
LOC: DI 15:39
PROVIDERS: ATTEND Nurse Practitioner
DX: M16.0 Bilateral primary osteoarthritis of hip (principal); M85.88 Other specified disorders of bone density and structure, other site; M47.816 Spondylosis without myelopathy or radiculopathy, lumbar region; M51.36 Other intervertebral disc degeneration, lumbar region

== ENCOUNTER 2023-07-30 14:44 | Outpatient (CLI) | payer MEDICARE, MEDICAID ==
[2023-07-30 14:53] LABS: BILIRUBIN,URINE NEGATIVE (NEGATIVE); GLUCOSE, URINE (UA) NEGATIVE (NEGATIVE); KETONES,URINE (UA) NEGATIVE (NEGATIVE); LEUKOCYTE ESTERASE, URINE NEGATIVE (NEGATIVE); NITRITE,URINE NEGATIVE (NEGATIVE); OCCULT BLOOD,URINE TRACE-INTA (NEGATIVE); PROTEIN,URINE 100 mg/dL (NEGATIVE); UROBILINOGEN,URINE 0.2 (NORMAL) E.U./dL (NORMAL)
[2023-07-30 14:55] LABS: CLARITY,URINE CLEAR (CLEAR)
[2023-07-30 15:05] LABS: BACTERIA,URINE None Seen /HPF (None Seen); RBC,URINE None Seen /HPF (0-5); SQUAMOUS EPITHELIAL CELL,UR NONE SEEN (<= Few); WBC,URINE 0-3 /HPF (0-5)
== END 2023-07-30 14:45 | disposition home or self-care (01) ==
LOC: LAB 14:44 → LAB.R 14:45
PROVIDERS: ATTEND Nurse Practitioner
DX: R30.0 Dysuria (principal)
CPT/HCPCS: 81001; 87086

== ENCOUNTER 2023-09-10 13:26 | Emergency (ER) | payer MEDICARE, MEDICAID ==
[2023-09-10 13:52] VITALS: BP 180/60; O2SAT 98
--- NOTE | 2023-09-10 14:40 | ED Physician Documentation ---
PD HPI BACK PAIN - Stated complaint Stated Complaint: BACK PX - Chief complaint Chief Complaint: Back Pain - Additional information Additional information: 83-year-old female with history of hypertension, high cholesterol, murmur, arrhythmia, type 2 diabetes, incontinence, osteoarthritis, chronic back pain presents emergency department for lower back pain. Patient says that she has had imaging done including CT and x-ray with her primary care provider Dilcia Ballard. Patient says that she has been taking muscle relaxers Tylenol with little to no relief She has chronic incontinence but no acute new urinary or bowel incontinence. She has had no recent falls or trauma to her lower back. Patient also says that she is worried that she is developing a pressure ulcer on her buttocks she says that she has not been using her Donut towel to help with known chronic pressure ulcers and has been having. She does have a caregiver that helps her with mobility but says that she is in a rock and a hard place with her lower back pain and not wanting to move off her buttocks. No new weakness. PD PAST MEDICAL HISTORY - Past Medical History Past Medical History: Yes Cardiovascular: Hypertension, High cholesterol, Murmur, Arrhythmia Respiratory: None Neuro: TIA Endocrine/Autoimmune: Type 2 diabetes GI: None ADMISSIONS OFFICER: Other : Incontinence HEENT: Other Psych: Depression Musculoskeletal: Osteoarthritis, Chronic back pain Derm: None - Past Surgical History Past Surgical History: Yes General: Appendectomy Ortho: Other /ADMISSIONS OFFICER: Other - Present Medications Home Medications: Ambulatory Orders Medication Instructions Recorded Confirmed Apixaban [Eliquis] 5 mg ORAL BID 01/13/21 07/26/23 Docusate Sodium [Dulcolax Stool 1 tab ORAL DAILY PRN 01/13/21 07/26/23 Softener] Lisinopril [Zestril] 40 mg ORAL DAILY 01/13/21 07/26/23 Lovastatin 40 mg ORAL DAILY 01/13/21 07/26/23 Physical Therapy 1 unit TD ONCE #1 04/04/22 07/26/23 amLODIPine [Norvasc] 5 mg PO DAILY 04/04/22 07/26/23 Acetaminophen [Tylenol] 1 tab PO Q6HR PRN MDD 3000mg 09/05/22 07/26/23 Ascorbic Acid [Vitamin C] 500 mg PO DAILY 09/05/22 07/26/23 Cholecalciferol (Vitamin D3) 50 mcg PO DAILY 09/05/22 07/26/23 [Vitamin D3] Cyanocobalamin (Vitamin B-12) 1 tab PO DAILY 09/05/22 07/26/23 [Vitamin B-12] Ferrous Sulfate [Feosol] 325 mg PO DAILY 09/05/22 07/26/23 Furosemide [Lasix] 40 mg PO DAILY 09/05/22 07/26/23 Insulin Glargine,Hum.rec.anlog 13 unit SUBQ QPM 09/05/22 07/26/23 [Toujeo Solostar] Insulin Lispro [Humalog Kwikpen 5 unit SUBQ TIDWM 09/05/22 07/26/23 U-100] Magnesium Oxide [Magnesium] 400 mg PO DAILY 09/05/22 07/26/23 Potassium Citrate [Potassium] 1 cap PO DAILY 09/05/22 07/26/23 - Allergies Allergies/Adverse Reactions: Allergies Allergy/AdvReac Type Severity Reaction Status Date / Time No Known Drug Allergies Allergy Verified 09/10/23 13:30 - Social History Does the pt smoke?: No Smoking Status: Never smoker Does the pt drink ETOH?: Yes Does the pt have substance abuse?: No - Immunizations Immunizations are current?: Yes - POLST Patient has POLST: No POLST Status: DNR PD ED PE NORMAL - Vitals Vital signs reviewed: Yes - General General: Alert and oriented X 3, No acute distress, Other (Obese) - HEENT HEENT: Atraumatic, PERRL - Cardiac Cardiac: RRR - Abdomen Abdomen: Normal bowel sounds, Soft, Non tender - Back Back: No CVA TTP, No spinal TTP - Derm Derm: Other (Blanchable erythema to buttocks) - Neuro Neuro: Alert and oriented X 3, director of operations 2-12 intact, No motor deficit, No sensory deficit, Normal speech Eye Opening: Spontaneous Motor: Obeys Commands Verbal: Oriented GCS Score: 15 - Free text exam Free text exam: Neck and back are without deformity, external skin changes, or signs of trauma. Curvature of the cervical, thoracic, and lumbar spine are within normal limits. Bony features of the shoulders and hips are of equal height bilaterally. Posture is upright, gait is smooth, steady, and within normal limits. No tenderness noted on palpation of the spinous processes. Spinous processes are midline. Cervical, thoracic, and lumbar paraspinal muscles are not tender and are without spasm. No discomfort is noted with flexion, extension, and [id number] rotation of the cervical spine, full range of motion is noted. Full range of motion including flexion, extension, and [id number] rotation of the thoracic and lumbar spine are noted and without discomfort. Straight leg raise test is negative bilaterally. Sensation to the upper and lower extremities is normal bilaterally. No clonus is noted. [employer] strength is normal bilaterally. Dorsi/plantar flexion is normal bilaterally. Results - Vitals Vitals: Vital Signs - 24 hr 09/10/23 13:30 Temperature 36.8 C Heart Rate 60 Respiratory 16 Rate Blood Pressure 180/60 H O2 Saturation 98 Oxygen O2 Source Room air - Labs Labs: Laboratory Tests 09/10/23 16:35 Urine Color YELLOW Urine Clarity CLEAR Urine pH 7.0 Ur Specific [place] 1.020 Urine Protein 100 H Urine Glucose (UA) NEGATIVE Urine Ketones NEGATIVE Urine Occult Blood NEGATIVE Urine Nitrite NEGATIVE Urine Bilirubin NEGATIVE Urine Urobilinogen 1 (NORMAL) Ur Leukocyte Esterase NEGATIVE Urine RBC 0-5 Urine WBC 0-3 Ur Squamous Epith Cells NONE SEEN Urine Bacteria None Seen Ur Microscopic Review INDICATED Urine Culture Comments NOT INDICATED PD Medical Decision Making - ED course ED course: 83-year-old female presents emergency department for Lower back pain. When I d iscussed with the patient that we should repeat a CT scan of her lower back given her age she says that she absolutely refuses to do any imaging here in the emergency department and just wants medication to treat her pain. She was agreeable to do a urinalysis and urinalysis does not have any leukocytes or nitrates or bacteria making me less concerned about possible pyelonephritis. Patient also did have blanchable erythema to buttocks she was given barrier cream and was told that she really needs to start utilizing her doughnut pillow again at home and make sure that she is doing everything she possibly can to stay off her buttocks. Patient told that she may benefit from more advanced imaging outpatient such as an MRI for further evaluation of her ongoing lower back pain into that she related benefit from following up with her primary care provider. She was given a dose of Dilaudid here in the emergency department for her lower back pain and said that she did not like the way that this made her feel because she felt quite woozy so additional narcotics were not prescribed to the patient. Her caregiver drove her home. She was given return precautions she already has muscle relaxers at home that she is told to continue to take but not tonight as she already has the Dilaudid on board. Patient was told if she changes her mind and would like to proceed with CT scan in the emergency department to feel free to come back for further evaluation and workup. Departure - Departure Disposition: Home, Self Care Clinical Impression: Back pain, Pressure sore on buttocks Instructions: Back Pain Relieve, Back Safety Into and Out Bed, Back Safety Bending Comments: They have a trusting us with your care. We have given you some Dilaudid here in the emergency department to help with your back pain. At this point in time you are declining further workup such as urine and imaging. If you change your mind please come back to the emergency department for further evaluation. Please follow-up with your primary care provider for possible MRI as well as physical therapy to help combat this ongoing back pain that you are experiencing. You can take 1000 mg of Tylenol every 8 hours as well as a muscle relaxer and I would also consider adding on a lidocaine patch. If you start to experience any incontinence of urine or feces please come back to the emergency department for further evaluation. Again if you change your mind and would like to come back to the ER for further workup for more than happy to help you. Discharge Date/Time: 09/10/23 17:24
[2023-09-10] MEDS: HYDROmorphone 0.5 MG/0.5 ML SYRINGE IM STA (15:55)
[2023-09-10 16:42] LABS: BILIRUBIN,URINE NEGATIVE (NEGATIVE); GLUCOSE, URINE (UA) NEGATIVE (NEGATIVE); KETONES,URINE (UA) NEGATIVE (NEGATIVE); LEUKOCYTE ESTERASE, URINE NEGATIVE (NEGATIVE); NITRITE,URINE NEGATIVE (NEGATIVE); OCCULT BLOOD,URINE NEGATIVE (NEGATIVE); PROTEIN,URINE 100 mg/dL (NEGATIVE); UROBILINOGEN,URINE 1 (NORMAL) E.U./dL (NORMAL)
[2023-09-10 16:47] LABS: CLARITY,URINE CLEAR (CLEAR)
[2023-09-10 16:53] LABS: BACTERIA,URINE None Seen /HPF (None Seen); RBC,URINE 0-5 /HPF (0-5); SQUAMOUS EPITHELIAL CELL,UR NONE SEEN (<= Few); WBC,URINE 0-3 /HPF (0-5)
[2023-09-10] MEDS ORDERED: MIN OIL/DIMETHICON/COCONUT OIL 92 GM TUBE TOP STA (17:06)
== END 2023-09-10 17:24 | disposition home or self-care (01) ==
LOC: ED 13:26
DX: M54.50 Low back pain, unspecified (principal); L89.309 Pressure ulcer of unspecified buttock, unspecified stage; Z91.199 Patient's noncompliance with other medical treatment and regimen due to unspecified reason
CPT/HCPCS: 81001; 96374; 99283; J1170; 81003; 87086

== ENCOUNTER 2023-10-18 13:46 | Outpatient (CLI) | payer MEDICARE, MEDICAID | END 2023-10-18 13:47 | disposition EMS.NT | LOC: EMS 13:46 | DX: E11.649 Type 2 diabetes mellitus with hypoglycemia without coma (principal) ==